=== PATIENT | female | born 1975 | race Caucasian/White ===

== ENCOUNTER 2019-01-03 21:02 | Emergency (ER) | payer BC ==
[2019-01-03] MEDS ORDERED: Norflurane/HFc 245FA Medium Stream Spray 103.5 ML Can TOP ONE (21:30)
[2019-01-03] MEDS ORDERED: Sodium Chloride 0.9% 10 ML Syringe FLUSH PRN (21:32)
[2019-01-03] MEDS ORDERED: Promethazine 12.5 MG in Sodium Chloride 0.9% 100 ML IV ONE (21:34)
[2019-01-03] MEDS ORDERED: diphenhydrAMINE 50 MG/ML SDV IVPUSH ONE (21:34)
[2019-01-03] MEDS: Sodium Chloride 0.9% 1,000 ML IV SCH ×2 (21:53→23:10)
[2019-01-03 22:05] LABS: CHLORIDE,CL 103 mmol/L (98-107); SODIUM,NA 140 mmol/L (136-145)
[2019-01-03] MEDS ORDERED: Haloperidol Lactate 5 MG/ML SDV IV ONE (22:39)
--- NOTE | 2019-01-03 23:00 | EDM.PDOC ---
ED HPI GENERAL MEDICAL PROBLEM - General Chief Complaint: Headache Stated Complaint: migraine Time Seen by Provider: 01/03/19 21:29 Source of Information: Reports: Patient History Limitations: Reports: No Limitations - History of Present Illness INITIAL COMMENTS - FREE TEXT/NARRATIVE: Patient is a 43-year-old who is seen with chief complaint of migraine headaches she states that he started earlier today she did have some photophobia and some type of visual hallucination of lites earlier today she states her headache is about a 10 out of 10 at this time at this time patient will be hydrated Phenergan and Benadryl given and we will Duration: Hour(s):, Getting Worse Location: Reports: Head Quality: Reports: Stabbing, Throbbing Severity: Severe Improves with: Reports: Medication Worsens with: Reports: Other Associated Symptoms: Reports: Nausea/Vomiting Treatments YARN COMBER: Reports: Other Medication(s) Headache Pain Score (Numeric/FACES): 7 - Related Data Allergies Allergy/AdvReac Type Severity Reaction Status Date / Time paroxetine HCl [From Paxil] Allergy Unknown paranoia Verified 01/03/19 21:20 bupropion [From Wellbutrin] Allergy Hallucinati Verified 01/03/19 21:20 ons denosumab [From Prolia] Allergy Other Verified 01/03/19 21:20 latex Allergy hot Verified 01/03/19 21:20 "inflammed" rash prednisone Allergy paranoia Verified 01/03/19 21:20 Home Meds: Home Meds LORazepam [Ativan] 1 mg PO Q8HR PRN 11/11/17 [History] ALPRAZolam [Xanax] 0.5 mg PO QID PRN 06/09/18 [History] Ondansetron [Ondansetron ODT] 1 tab .ROUTE Q6H PRN 06/09/18 [History] Propranolol [Propranolol CR 24 Hr] 120 mg PO BEDTIME 06/09/18 [History] Cyanocobalamin (Vitamin B12) [Cyanocobalamin] 2,000 mcg SUBCUT MO 06/10/18 [ History] Omeprazole 20 mg PO BEDTIME 06/10/18 [History] Acetaminophen [Tylenol] 3 tab PO ASDIRECTED PRN 01/03/19 [History] Ibuprofen [Advil] 3 tab PO Q6H PRN 01/03/19 [History] Non-Formulary Medication [NF Drug] 3 tab PO Q6H PRN 01/03/19 [History] Promethazine [Phenergan] 50 mg PO ASDIRECTED PRN 01/03/19 [History] Varenicline Tartrate [Chantix] 1 tab PO BID 01/03/19 [History] Past Medical History Other HEENT History: wears glasses Cardiovascular History: Reports: Hypertension Respiratory History: Reports: None Gastrointestinal History: Reports: Inflammatory Bowel Disease Other Gastrointestinal History: Chrohn's Disease Genitourinary History: Reports: None 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 Musculoskeletal History: Reports: None Neurological History: Reports: None Psychiatric History: Reports: Anxiety Endocrine/Metabolic History: Reports: None Immunologic History: Reports: None Oncologic (Cancer) History: Reports: None Dermatologic History: Reports: None ED ROS GENERAL - Review of Systems Review Of Systems: See Below Constitutional: Reports: No Symptoms HEENT: Reports: Vision Change (Patient had a burst of light earlier today on the right eye) Respiratory: Reports: No Symptoms Cardiovascular: Reports: No Symptoms Endocrine: Reports: No Symptoms GI/Abdominal: Reports: No Symptoms : Reports: No Symptoms Musculoskeletal: Reports: No Symptoms Skin: Reports: No Symptoms Neurological: Reports: Headache Psychiatric: Reports: No Symptoms Hematologic/Lymphatic: Reports: No Symptoms Immunologic: Reports: No Symptoms Free Text/Narrative/Comment: Patient has history of migraines percent with a right side migraine ED EXAM, HEAD INJURY - Physical Exam Exam: See Below Exam Limited By: No Limitations General Appearance: Alert, WD/WN, Moderate Distress, Other Head: Atraumatic, Normocephalic Ears: Normal External Exam, Normal Canal, Hearing Grossly Normal, Normal TMs Nose: Normal Inspection, Normal Mucousa, No Blood Throat/Mouth: Normal Inspection, Normal Lips, Normal Teeth, Normal Gums, Normal Oropharynx, Normal Voice, No Airway Compromise Neck: Non-Tender, Full Range of Motion, Normal Alignment, Normal Inspection Respiratory: No Respiratory Distress, Lungs Clear, Normal Breath Sounds, No Accessory Muscle Use, Chest Non-Tender Cardiovascular: Normal Peripheral Pulses, Regular Rate, Rhythm, No Edema, No Gallop, No JVD, No Murmur, No Rub GI/Abdominal Exam: Normal Bowel Sounds, Soft, Non-Tender, No Organomegaly, No Distention, No Abnormal Bruit, No Mass (Female) Exam: Deferred Rectal (Female) Exam: Deferred Back Exam: Full Range of Motion, Normal Inspection, NT Extremities: Normal Inspection, Normal Range of Motion, Non-Tender, No Pedal Edema, Normal Capillary Refill Neurologic: manager web application II-XII nml As Tested, No Motor/Sensory Deficits, Alert, Normal Mood/Affect, Oriented x 3, Other (Migraine headache) Skin: Normal Color, Warm/Dry - [place] Coma Score Best Eye Response (Norberto): (4) Open Spontaneously Best Verbal Response (Frank[place]): (5) Oriented Best Motor Response (Norberto): (6) Obeys Commands Course - Vital Signs Last Recorded V/S: Last Vital Signs Temp 97.8 F 01/03/19 21:06 Pulse 73 01/03/19 21:06 Resp 18 01/03/19 21:06 BP 127/67 01/03/19 21:06 Pulse Ox 97 01/03/19 21:06 - Orders/Labs/Meds Orders: Active Orders 24 hr Category Date Time Status Sodium Chloride 0.9% [Normal Saline] 1,000 ml Med 01/03/19 21:45 Active IV ASDIRECTED Sodium Chloride 0.9% [Saline Flush] Med 01/03/19 21:32 Active 10 ml FLUSH ASDIRECTED PRN Saline Lock Insert [OM.PC] Stat Oth 01/03/19 21:32 Ordered Medication Orders Sodium Chloride (Normal Saline) 1,000 mls @ 999 mls/hr IV ASDIRECTED ARLINE Last Admin: 01/03/19 21:53 Dose: 999 mls/hr Sodium Chloride (Saline Flush) 10 ml FLUSH ASDIRECTED PRN PRN Reason: Keep Vein Open Last Admin: 01/03/19 21:55 Dose: 10 ml Labs: Laboratory Tests 01/03/19 01/03/19 Range/Units 21:47 21:47 WBC 12.4 H (4.0-10.2) K/uL RBC 4.71 (3.77-5.09) M/uL Hgb 14.2 (11.7-15.5) g/dL Hct 41.6 (34.0-46.0) % MCV 88.3 (84.0-98.0) fL MCH 30.1 (28.2-33.3) pg MCHC 34.1 (31.7-36.0) g/dL RDW 14.9 H (11.2-14.1) % Plt Count 352 H (150-350) K/uL Neut % (Auto) 63.8 (45.0-80.0) % Lymph % (Auto) 27.2 (10.0-50.0) % Harris % (Auto) 7.1 (2.0-14.0) % Eos % (Auto) 1.7 (0.0-5.0) % Baso % (Auto) 0.2 (0.0-2.0) % Neut # (Auto) 7.89 H (1.40-7.00) K/uL Lymph # (Auto) 3.36 (0.50-3.50) K/uL Harris # (Auto) 0.88 (0.00-1.00) K/uL Eos # (Auto) 0.21 (0.00-0.50) K/uL Baso # (Auto) 0.02 (0.00-0.20) K/uL Sodium 140 (136-145) mmol/L Potassium 3.1 L (3.5-5.1) mmol/L Chloride 103 (98-107) mmol/L Carbon Dioxide 24.6 (21.0-32.0) mmol/L BUN 7 (7-18) mg/dL Creatinine 0.70 (0.51-1.17) mg/dL Est Cr Clr Drug Dosing TNP Estimated GFR (MDRD) > 60 mL/min Glucose 89 (74-106) mg/dL Calcium 8.8 (8.5-10.1) mg/dL Meds: Medications Generic Name Dose Route Start Last Admin Trade Name Freq PRN Reason Stop Dose Admin Sodium Chloride 1,000 mls @ 999 mls/hr 01/03/19 21:45 01/03/19 21:53 Normal Saline IV 999 mls/hr ASDIRECTED ARLINE Administration Sodium Chloride 10 ml 01/03/19 21:32 01/03/19 21:55 Saline Flush FLUSH 10 ml ASDIRECTED PRN Administration Keep Vein Open Discontinued Medications Generic Name Dose Route Start Last Admin Trade Name Freq PRN Reason Stop Dose Admin Diphenhydramine HCl 50 mg 01/03/19 21:34 01/03/19 21:55 Benadryl IVPUSH 01/03/19 21:35 50 mg ONETIME ONE Administration Haloperidol Lactate 1 mg 01/03/19 22:39 01/03/19 23:02 Haldol IV 01/03/19 22:40 1 mg ONETIME ONE Administration Promethazine HCl 12.5 mg/ 100.5 mls @ 400 mls/hr 01/03/19 21:34 01/03/19 21: 55 Sodium Chloride IV 01/03/19 21:49 400 mls/hr ONETIME ONE Administration Norflurane 5 ml 01/03/19 21:30 01/03/19 21:53 Pain Ease [place] TOP 01/03/19 21:31 1 dose ONETIME ONE Administration Departure - Departure Time of Disposition: 23:55 Disposition: Home, Self-Care 01 Condition: Poor Clinical Impression: Migraine, Hypokalemia - Discharge Information *PRESCRIPTION DRUG MONITORING PROGRAM REVIEWED*: No *COPY OF PRESCRIPTION DRUG MONITORING REPORT IN PATIENT AJIT: No Referrals: Jane Pitts PA-C [Primary Care Provider] - Forms: ED Department Discharge Care Plan Goals: Patient seen treated with IV fluids and the nausea medication Benadryl and given Haldol at this time patient is sleepy headache is better but still there I will give her another liter of fluids neuro note of to stay home until her headaches improve. Haldol 1 mg IV given patient now sleepy headache improved discharged home follow-up with primary - My Orders Last 24 Hours: My Active Orders 01/03/19 21:32 Sodium Chloride 0.9% [Saline Flush] 10 ml FLUSH ASDIRECTED PRN Saline Lock Insert [OM.PC] Stat 01/03/19 21:45 Sodium Chloride 0.9% [Normal Saline] 1,000 ml IV ASDIRECTED - Assessment/Plan Last 24 Hours: My Active Orders 01/03/19 21:32 Sodium Chloride 0.9% [Saline Flush] 10 ml FLUSH ASDIRECTED PRN Saline Lock Insert [OM.PC] Stat 01/03/19 21:45 Sodium Chloride 0.9% [Normal Saline] 1,000 ml IV ASDIRECTED
== END 2019-01-04 00:34 | disposition home or self-care (01) ==
LOC: LL.ED 21:02
DX: G43.909 Migraine, unspecified, not intractable, without status migrainosus (principal); E87.6 Hypokalemia; I10 Essential (primary) hypertension; Z88.8 Allergy status to other drugs, medicaments and biological substances; Z79.899 Other long term (current) drug therapy
CPT/HCPCS: 36415; 80048; 85025; 96361; 96374; 96375; 99283-25; J1200; J1630; J2550; J7030; J7050

== ENCOUNTER 2019-08-10 20:50 | Emergency (ER) | payer BC ==
[2019-08-10] MEDS ORDERED: Sodium Chloride 0.9% 10 ML Syringe FLUSH PRN (21:19)
[2019-08-10] MEDS ORDERED: Norflurane/HFc 245FA Medium Stream Spray 103.5 ML Can TOP ONE (21:20)
[2019-08-10] MEDS ORDERED: Potassium Chloride 10 MEQ in Premix Bag 1 BAG IV ONE ×8 (21:45→21:46)
[2019-08-10] MEDS ORDERED: Sodium Chloride 0.9% 1,000 ML IV ONE (22:02)
--- NOTE | 2019-08-10 22:46 | EDM.PDOC ---
ED HPI GENERAL MEDICAL PROBLEM - General Chief Complaint: General Stated Complaint: LOW POTASSIUM Time Seen by Provider: 08/10/19 21:00 Source of Information: Reports: Patient - History of Present Illness INITIAL COMMENTS - FREE TEXT/NARRATIVE: Pt presents to ER with low potassium Has hx/o chronic hypokalemia due to chronic diarrhea from Crohn's Was seen in clinic today and noted to be low Began having palpitations and this is a usual symptom when she is low Her K+ was 2.5 Onset: Gradual Duration: Chronic Location: Reports: Chest Associated Symptoms: Reports: Other (Palpitations) Sternum Pain Score (Numeric/FACES): 6 - Related Data Allergies Allergy/AdvReac Type Severity Reaction Status Date / Time paroxetine HCl [From Paxil] Allergy Unknown paranoia Verified 08/10/19 20:58 aripiprazole [From Abilify] Allergy Irritabilit Verified 08/10/19 20:58 y bupropion [From Wellbutrin] Allergy Hallucinati Verified 08/10/19 20:58 ons denosumab [From Prolia] Allergy Other Verified 08/10/19 20:58 latex Allergy hot Verified 08/10/19 20:58 "inflammed" rash prednisone Allergy paranoia Verified 08/10/19 20:58 Home Meds: Home Meds LORazepam [Ativan] 1 mg PO Q8HR PRN 11/11/17 [History] ALPRAZolam [Xanax] 0.5 mg PO QID PRN 06/09/18 [History] Ondansetron [Ondansetron ODT] 1 tab .ROUTE Q6H PRN 06/09/18 [History] Propranolol [Propranolol CR 24 Hr] 120 mg PO BEDTIME 06/09/18 [History] Cyanocobalamin (Vitamin B12) [Cyanocobalamin] 2,000 mcg SUBCUT WEEKLY 06/10/18 [ History] Omeprazole 20 mg PO BEDTIME 06/10/18 [History] Acetaminophen [Tylenol] 3 tab PO ASDIRECTED PRN 01/03/19 [History] Ibuprofen [Advil] 3 tab PO Q6H PRN 01/03/19 [History] Non-Formulary Medication [NF Drug] 3 tab PO Q6H PRN 01/03/19 [History] Promethazine [Phenergan] 50 mg PO ASDIRECTED PRN 01/03/19 [History] Varenicline Tartrate [Chantix] 1 tab PO BID 01/03/19 [History] Aspirin [Halfprin] 81 mg PO DAILY 02/15/19 [History] Past Medical History Other HEENT History: wears glasses Cardiovascular History: Reports: Hypertension, Other (See Below) Other Cardiovascular History: pt has chest discomfort when potassium levels are low. 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 Musculoskeletal History: Reports: None Neurological History: Reports: None Psychiatric History: Reports: Anxiety Endocrine/Metabolic History: Reports: None Immunologic History: Reports: None Oncologic (Cancer) History: Reports: None Dermatologic History: Reports: None Social & Family History - Tobacco Use Smoking Status *Q: Current Every Day Smoker Years of Tobacco use: 30 Packs/Tins Daily: 1 - Caffeine Use Caffeine Use: Reports: Soda ED ROS GENERAL - Review of Systems Review Of Systems: See Below Cardiovascular: Reports: Palpitations ED EXAM, GENERAL - Physical Exam Exam: See Below General Appearance: Mild Distress Neck: Supple Respiratory/Chest: Lungs Clear Cardiovascular: Regular Rate, Rhythm Course - Vital Signs Last Recorded V/S: Last Vital Signs Temp 36.6 C 08/10/19 20:51 Pulse 63 08/10/19 20:51 Resp 16 08/10/19 20:51 BP 103/57 L 08/10/19 20:51 Pulse Ox 100 08/10/19 20:51 - Orders/Labs/Meds Orders: Active Orders 24 hr Category Date Time Status Cardiac Monitoring [RC] . DIRECTED Care 08/10/19 22:11 Active Communication Order [RC] ROUTINE Care 08/10/19 22:11 Active Potassium Chloride [KCl 10 MEQ in Water 50 ML] 10 meq Med 08/10/19 21:45 Active Premix Bag 1 bag IV ONETIME Potassium Chloride [KCl 10 MEQ in Water 50 ML] 10 meq Med 08/10/19 21:45 Active Premix Bag 1 bag IV ONETIME Potassium Chloride [KCl 10 MEQ in Water 50 ML] 10 meq Med 08/10/19 21:46 Active Premix Bag 1 bag IV ONETIME Potassium Chloride [KCl 10 MEQ in Water 50 ML] 10 meq Med 08/10/19 21:46 Active Premix Bag 1 bag IV ONETIME Sodium Chloride 0.9% [Normal Saline] 1,000 ml Med 08/10/19 22:02 Active IV ONETIME Sodium Chloride 0.9% [Saline Flush] Med 08/10/19 21:19 Active 10 ml FLUSH ASDIRECTED PRN Saline Lock Insert [OM.PC] Routine Oth 08/10/19 21:19 Ordered Medication Orders Potassium Chloride 10 meq/ (Premix) 50 mls @ 50 mls/hr IV ONETIME ONE Stop: 08/10/19 22:44 Last Admin: 08/10/19 22:04 Dose: 50 mls/hr Potassium Chloride 10 meq/ (Premix) 50 mls @ 50 mls/hr IV ONETIME ONE Stop: 08/10/19 22:44 Potassium Chloride 10 meq/ (Premix) 50 mls @ 50 mls/hr IV ONETIME ONE Stop: 08/10/19 22:45 Potassium Chloride 10 meq/ (Premix) 50 mls @ 50 mls/hr IV ONETIME ONE Stop: 08/10/19 22:45 Sodium Chloride (Normal Saline) 1,000 mls @ 200 mls/hr IV ONETIME ONE Stop: 08/11/19 03:01 Last Admin: 08/10/19 22:04 Dose: 200 mls/hr Sodium Chloride (Saline Flush) 10 ml FLUSH ASDIRECTED PRN PRN Reason: Keep Vein Open Meds: Medications Generic Name Dose Route Start Last Admin Trade Name Freq PRN Reason Stop Dose Admin Potassium Chloride 10 meq/ 50 mls @ 50 mls/hr 08/10/19 21:45 08/10/19 22:04 Premix IV 08/10/19 22:44 50 mls/hr ONETIME ONE Administration Potassium Chloride 10 meq/ 50 mls @ 50 mls/hr 08/10/19 21:45 Premix IV 08/10/19 22:44 ONETIME ONE Potassium Chloride 10 meq/ 50 mls @ 50 mls/hr 08/10/19 21:46 Premix IV 08/10/19 22:45 ONETIME ONE Potassium Chloride 10 meq/ 50 mls @ 50 mls/hr 08/10/19 21:46 Premix IV 08/10/19 22:45 ONETIME ONE Sodium Chloride 1,000 mls @ 200 mls/hr 08/10/19 22:02 08/10/19 22:04 Normal Saline IV 08/11/19 03:01 200 mls/hr ONETIME ONE Administration Sodium Chloride 10 ml 08/10/19 21:19 Saline Flush FLUSH ASDIRECTED PRN Keep Vein Open Discontinued Medications Generic Name Dose Route Start Last Admin Trade Name Freq PRN Reason Stop Dose Admin Norflurane 1 ml 08/10/19 21:20 08/10/19 21:33 Pain Ease [place] TOP 08/10/19 21:21 1 applic ONETIME ONE Administration - Re-Assessments/Exams Free Text/Narrative Re-Assessment/Exam: 08/10/19 22:46 Pt given KCl 10 eEq/ 50 ml NS X 4 in ER Pt has oral potassium at home Will recheck in clinic in AM Departure - Departure Time of Disposition: 03:00 Disposition: Home, Self-Care 01 Clinical Impression: Hypokalemia - Discharge Information Instructions: Hypokalemia Referrals: Jane Pitts PA-C [Primary Care Provider] - Additional Instructions: Recheck in clinic in AM Sepsis Event Note - Evaluation Sepsis Screening Result: No Definite Risk - Focused Exam Vital Signs: Vital Signs Temp Pulse Resp BP Pulse Ox 08/10/19 20:51 36.6 C 63 16 103/57 L 100 Date Exam was Performed: 08/10/19 Time Exam was Performed: 22:41 - My Orders Last 24 Hours: My Active Orders 08/10/19 21:19 Sodium Chloride 0.9% [Saline Flush] 10 ml FLUSH ASDIRECTED PRN Saline Lock Insert [OM.PC] Routine 08/10/19 21:45 Potassium Chloride [KCl 10 MEQ in Water 50 ML] 10 meq Premix Bag 1 bag IV ONETIME Potassium Chloride [KCl 10 MEQ in Water 50 ML] 10 meq Premix Bag 1 bag IV ONETIME 08/10/19 21:46 Potassium Chloride [KCl 10 MEQ in Water 50 ML] 10 meq Premix Bag 1 bag IV ONETIME Potassium Chloride [KCl 10 MEQ in Water 50 ML] 10 meq Premix Bag 1 bag IV ONETIME 08/10/19 22:02 Sodium Chloride 0.9% [Normal Saline] 1,000 ml IV ONETIME 08/10/19 22:11 Cardiac Monitoring [RC] . DIRECTED Communication Order [RC] ROUTINE - Assessment/Plan Last 24 Hours: My Active Orders 08/10/19 21:19 Sodium Chloride 0.9% [Saline Flush] 10 ml FLUSH ASDIRECTED PRN Saline Lock Insert [OM.PC] Routine 08/10/19 21:45 Potassium Chloride [KCl 10 MEQ in Water 50 ML] 10 meq Premix Bag 1 bag IV ONETIME Potassium Chloride [KCl 10 MEQ in Water 50 ML] 10 meq Premix Bag 1 bag IV ONETIME 08/10/19 21:46 Potassium Chloride [KCl 10 MEQ in Water 50 ML] 10 meq Premix Bag 1 bag IV ONETIME Potassium Chloride [KCl 10 MEQ in Water 50 ML] 10 meq Premix Bag 1 bag IV ONETIME 08/10/19 22:02 Sodium Chloride 0.9% [Normal Saline] 1,000 ml IV ONETIME 08/10/19 22:11 Cardiac Monitoring [RC] . DIRECTED Communication Order [RC] ROUTINE
== END 2019-08-11 02:50 | disposition home or self-care (01) ==
LOC: LL.ED 20:50
DX: E87.6 Hypokalemia (principal); I10 Essential (primary) hypertension; F41.9 Anxiety disorder, unspecified; F17.210 Nicotine dependence, cigarettes, uncomplicated; Z79.82 Long term (current) use of aspirin; Z79.899 Other long term (current) drug therapy; Z88.6 Allergy status to analgesic agent; Z88.8 Allergy status to other drugs, medicaments and biological substances; Z91.040 Latex allergy status
CPT/HCPCS: 96365; 96366; 99284-25; J3480; J7030

== ENCOUNTER 2020-12-22 09:23 | Emergency (ER) | payer OTHER ==
[2020-12-22] MEDS ORDERED: EPINEPHrine 1 MG/1 ML Amp IM ONE (09:26)
[2020-12-22] MEDS ORDERED: Famotidine 20 MG/2 ML SDV IVPUSH ONE (09:28)
[2020-12-22] MEDS ORDERED: diphenhydrAMINE 50 MG/ML SDV IVPUSH ONE (09:28)
[2020-12-22] MEDS ORDERED: Norflurane/HFc 245FA Medium Stream Spray 103.5 ML Can ONE (09:28)
[2020-12-22] MEDS ORDERED: Sodium Chloride 0.9% 10 ML Syringe FLUSH PRN (09:28)
--- NOTE | 2020-12-22 10:28 | EDM.PDOC ---
ED HPI GENERAL MEDICAL PROBLEM - General Chief Complaint: Allergic Reaction Stated Complaint: allergic reaction Time Seen by Provider: 12/22/20 09:23 Source of Information: Reports: Patient, Old Records ([facility] chart/EMR) History Limitations: Reports: No Limitations - History of Present Illness INITIAL COMMENTS - FREE TEXT/NARRATIVE: The patient drove herself to the emergency room for evaluation of progressive allergic reaction likely secondary to her Cimzia with second loading dose received yesterday at about 3:30 PM. One of the injection sites did show some mild pustular formation, which she drained yesterday, however no other significant evidence of local signs of infection. Since early this morning the patient began experiencing some increasing generalized pruritus, mild hive formation in the abdominal region at site of the above two injections and some beginning mild dyspnea and possible dysphagia. She denies any other change in allergen exposure with the patient taking 25 mg of her hydroxyzine 1 hour prior to arrival with no improvement of her symptoms. The patient did have a minor allergic reaction from her first loading dose of the above medication with hydroxyzine prescribed at that time, however she was not premedicated yesterday at time of her second loading dose. The patient denies any chest pain/pressure, heart flutter, dizziness, orthostasis, orthopnea, diaphoresis, paresthesias, recent decreased exercise tolerance, or any other anginal-type symptoms. No recent history of abdominal pain, heartburn, nausea, diarrhea, melena, gross hematochezia, or any food intolerance, including fatty foods, etc.. The patient also denies any recent fever, cough, wheezing, dyspnea, etc.. She denies any current specific pain or discomfort. Onset: Today, Gradual Onset Date: 12/22/20 Duration: Getting Worse Location: Reports: Abdomen, Other (Rash but no pain). Denies: Head, Face, Neck, Chest, Back, Pelvis, Upper Extremity, Left, Upper Extremity, Right, Lower Extremity, Left, Lower Extremity, Right, Generalized, Radiates to Quality: Reports: Same as Previous Episode Severity: Moderate Improves with: Reports: None Worsens with: Reports: None Context: Reports: Other (As above). Denies: Lifting, Sick Contact, Trauma Associated Symptoms: Denies: Confusion, Chest Pain, Cough, Diaphoresis, Fever/Chills, Headaches, Loss of Appetite, Malaise, Shortness of Breath, Syncope Treatments COMMUNITY SUPPORT ASSOCIATE: Reports: Other Medication(s) (As above) - Related Data Allergies Allergy/AdvReac Type Severity Reaction Status Date / Time paroxetine HCl [From Paxil] Allergy Unknown paranoia Verified 12/22/20 09:53 aripiprazole [From Abilify] Allergy Irritabilit Verified 12/22/20 09:53 y bupropion [From Wellbutrin] Allergy Hallucinati Verified 12/22/20 09:53 ons certolizumab pegol Allergy Rash Verified 12/22/20 09:53 [From Cimzia] denosumab [From Prolia] Allergy Other Verified 12/22/20 09:53 latex Allergy hot Verified 12/22/20 09:53 "inflammed" rash prednisone Allergy paranoia Verified 12/22/20 09:53 Home Meds: Home Meds Non-Formulary Medication [NF Drug] 6 mg PO BEDTIME 10/07/20 [History] ALPRAZolam [Xanax] 1 tab PO ASDIRECTED PRN 12/22/20 [History] Certolizumab Pegol [Cimzia] 400 mg SUBCUT ASDIRECTED 12/22/20 [History] Cyanocobalamin (Vitamin B-12) [B-12 Compliance] 2 ml PO WEEKLY 12/22/20 [History] Cyclobenzaprine [Flexeril] 1 tab PO TID PRN 12/22/20 [History] FLUoxetine [PROzac] 60 mg PO DAILY 12/22/20 [History] Famotidine [Pepcid] 20 mg PO BID #14 tab 12/22/20 [Rx] Omeprazole 1 tab PO DAILY 12/22/20 [History] Potassium Chloride [Klor-Con 10] 60 meq PO TID 12/22/20 [History] Prochlorperazine [Compazine] 5 mg PO DAILY PRN 12/22/20 [History] Propranolol HCl [Inderal Xl] 1 cap PO DAILY 12/22/20 [History] Rizatriptan Benzoate [Rizatriptan] 1 tab PO DAILY PRN 12/22/20 [History] busPIRone [Buspar] 1 tab PO BID 12/22/20 [History] hydrOXYzine HCL [Hydroxyzine HCl] 1 tab PO ASDIRECTED PRN 12/22/20 [History] Past Medical History HEENT History: Reports: Allergic Rhinitis Other HEENT History: The patient wears glasses and soft contact lenses occasionally. Cardiovascular History: Reports: Arrhythmia, High Cholesterol, Hypertension, Other (See Below). Denies: Aneurysm, Blood Clots/VTE/DVT Other Cardiovascular History: Left atrial enlargement by echocardiogram. Pt has nonspecific chest discomfort and sinus tachycardia when potassium levels are low. Respiratory History: Reports: Intubation, Previous, Other (See Below). Denies: Asthma, Bronchitis, Recurrent, COPD, Intubation, Difficult, PE, Pneumonia, Recurrent, Pneumothorax, Sleep Apnea, TB Other Respiratory History: Left rib fracture in about 2006. Gastrointestinal History: Reports: Cholelithiasis, Chronic Diarrhea, Fatty Liver, Fecal Incontinence, GERD, Inflammatory Bowel Disease. Denies: Celiac Disease, Chronic Constipation, Colon Polyp, Gastritis, GI Bleed, Hepatitis, Irritable Bowel Syndrome, Jaundice, Pancreatitis Other Gastrointestinal History: Crohn's Disease. Hepatomegaly with fatty liver. Genitourinary History: Reports: Urinary Incontinence, Other (See Below). Denies: Acute Renal Failure, Chronic Renal Insuffiency, Renal Calculus, STD, UTI, Recurrent Other Genitourinary History: Urinary incontinence improved/resolved after bladder suspension as below. VISUAL PRESENTATION MANAGER History: Reports: None, Dysfunctional Uterine Bleeding, Polycystic Ovaries, , Prolapsed Uterus, Spontaneous . Denies: Endometriosis, Fibroids : 6 Para: 3 LMP (Approximate): Other (See Below) Other VISUAL PRESENTATION MANAGER History: Surgical menopause as below secondary to dysfunctional uterine bleeding. Benign bilateral ovarian cysts. Benign nabothian cysts. SAB times x3. Initial full-term with subsequent at 36 weeks gestation and additional at 30 weeks gestation with labor starting at 25 weeks gestation. Musculoskeletal History: Reports: None Neurological History: Reports: Migraines Psychiatric History: Reports: Anxiety, Depression, Panic Attack, Psych Hospitalization(s), Suicide Attempt, Suicidal Ideation. Denies: Abuse, Victim of, ADD, ADHD, Addiction, Psychosis, PTSD, Other (See Below) Other Psychiatric History: Suicidal thoughts and attempt at age 13 with Tylenol overdose. Endocrine/Metabolic History: Reports: Hyperthyroidism, Hypokalemia, Obesity/BMI 30+, Osteopenia, Osteoporosis, Other (See Below). Denies: Diabetes, Gestational, Diabetes, Type I, Diabetes, Type II, Diabetes Mellitus, Type 3c, Hypomagnesemia, Hypothyroidism Other Endocrine/Metabolic History: Borderline subclinical hyperthyroidism. Hypoalbuminemia. Hematologic History: Reports: Anemia, B12 Deficiency, Iron Deficiency, Other (See Below). Denies: Blood Transfusion(s) Other Hematologic History: Occasional iron infusion required. Immunologic History: Reports: Immunosuppression, Other (See Below). Denies: AIDS, HIV, SLE Other Immunologic History: Current immunotherapy for her Crohn's disease. Oncologic (Cancer) History: Reports: None Dermatologic History: Reports: None. Denies: Eczema, Psoriasis - Infectious Disease History Infectious Disease History: Reports: Chicken Pox. Denies: C-Difficile, Measles, Meningitis, Mononucleosis, MRSA, Mumps, Novel Coronavirus, Pertussis (Whooping Cough), Rheumatic Fever, Rubella, Scarlet Fever, Shingles, TB, VRE - Past Surgical History Head Surgeries/Procedures: Reports: None HEENT Surgical History: Reports: Oral Surgery, Other (See Below). Denies: Adenoidectomy, Cataract Surgery, Eye Surgery, Laser Surgery, LASIK, Myringotomy w Tube(s), Naso-Sinus Surgery, Tonsillectomy Other HEENT Surgeries/Procedures: Almost complete teeth extraction with complete upper dentures and partial lowers. Cardiovascular Surgical History: Reports: None. Denies: Varicose Respiratory Surgical History: Reports: None. Denies: Thoracentesis GI Surgical History: Reports: Appendectomy, Cholecystectomy, Colon, Colonoscopy, EGD, Other (See Below). Denies: Hernia, Inguinal, Hernia Repair/Other, Polypectomy Other GI Surgeries/Procedures: Last EGD and colonoscopy in about 2015. Previous colonoscopy on 07/17/2011. Initial right-sided hemicolectomy in about 1999 with subsequent partial small bowel resection at the ileum including appendectomy with total resection of about 10 cm of small bowel in 2010. Open cholecystectomy 1992. Female Surgical History: Reports: D&C, Dilitation & Evacuation, Hysterectomy, Other (See Below). Denies: Breast Biopsy, Section, Oophorectomy, Salpingo-Oophorectomy, Tubal Ligation Other Female Surgeries/Procedures: D&C x1 secondary to SAB as above. Partial hysterectomy with concomitant bladder suspension surgery in 2019. Endocrine Surgical History: Reports: None. Denies: Thyroid Biopsy Neurological Surgical History: Reports: None. Denies: C-Spine, Discectomy, Laminectomy, Lumbar Spine, Sacral Spine, Spinal Fusion, Thoracic Spine, Vertebroplasty Musculoskeletal Surgical History: Reports: None. Denies: Arthroscopic Procedure , Carpal Tunnel, Ganglion Cyst, Joint Replacement, ORIF, Shoulder Surgery Oncologic Surgical History: Reports: None Dermatological Surgical History: Reports: None - Past Imaging History Past Imaging History: Reports: Cardiac Echo (08/17/2019 with ejection fraction of 60-65% with findings as above. Previously on 11/29/2014.), CAT Scan (Head 05/31/2014. Abdomen and pelvis on 09/22/2013.), DEXA Scan (01/26/2019, 02/06/2017, and 11/22/2014.), Mammogram (Last on 08/24/2020.), MRI (C-spine on 09/21/2013.), Ultrasound (Left breast 07/09/2018. Pelvic on 05/27/2017 and 11/08/2013. Abdominal on 07/26/2015.) Social & Family History - Family History Cardiac: Reports: CAD, AR, Other (See Below) Other Cardiac Family History: Father with AR at age 48. Psychiatric: Reports: Anxiety, Depression, Other (See Below) Other Psychiatric Family History: Mother with anxiety depression disorder. - Tobacco Use Tobacco Use Status *Q: Current Every Day Tobacco User Tobacco Use Within Last Twelve Months: Cigarettes Years of Tobacco use: 31 Packs/Tins Daily: 1 Used Tobacco, but Quit: No Smoking Cessation Information Provided To Patient: Yes Second Hand Smoke Exposure: Yes Source of Second Hand Smoke Exposure: smokes. Second Hand Smoke Education Provided: Yes - Caffeine Use Caffeine Use: Reports: Soda - Alcohol Use Alcohol Use History: Yes Days Per Week of Alcohol Use: 0 Number of Drinks Per Day: 2 Number of Drinks Per Day Comment: Usually wine 3 times per month. No previous DWIs, problems with alcohol abuse, etc. 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 ED EXAM GENERAL NO PERIP PULSE - Physical Exam Exam: See Below Exam Limited By: No Limitations General Appearance: Alert, WD/WN, No Apparent Distress, Anxious (Moderate) Eye Exam: Bilateral Eye: EOMI, Normal Inspection (Patient is wearing glasses. No vertigo or nystagmus), PERRL Ears: Normal External Exam, Normal Canal, Hearing Grossly Normal, Normal TMs Nose: Normal Inspection, Normal Mucosa, No Blood Throat/Mouth: Normal Inspection, Normal Lips, Normal Gums, Normal Oropharynx, Normal Voice, No Airway Compromise, Other (No facial angioedema). No: Normal Teeth (Complete upper dentures with partial lowers), Dysphagia, Inflammation, Perioral Cyanosis Head: Atraumatic, Normocephalic. No: Facial Swelling, Facial Tenderness, Sinus Tenderness Neck: Normal Inspection, Supple, Non-Tender, Full Range of Motion. No: Carotid Bruit, Lymphadenopathy (L), Lymphadenopathy (R), Thyromegaly Respiratory/Chest: No Respiratory Distress, Lungs Clear, Normal Breath Sounds, No Accessory Muscle Use, Chest Non-Tender. No: Pleural Rub, Retractions Cardiovascular: Normal Peripheral Pulses, Regular Rate, Rhythm, No Edema, No Gallop, No JVD, No Murmur, No Rub. No: Gallop/S3, Gallop/S4, Friction Rub GI/Abdominal: Normal Bowel Sounds, Soft, Non-Tender, No Organomegaly, No Distention, No Abnormal Bruit, No Mass, Other (Mildly obese). No: Guarding (Female) Exam: Deferred Rectal (Female) Exam: Deferred Back Exam: Normal Inspection, Full Range of Motion. No: CVA Tenderness (L), CVA Tenderness (R), Muscle Spasm Extremities: Normal Inspection, Normal Range of Motion, Non-Tender, No Pedal Edema, Normal Capillary Refill. No: Gabriela's Sign Neurological: Alert, Oriented, CN II-XII Intact, Normal Cognition, Normal Gait, No Motor/Sensory Deficits Psychiatric: Anxious (Moderate), Depressed Mood (Mild) Skin Exam: Warm, Dry, Intact, Normal Color, Rash (Mildly confluent diffuse macular urticarial rash in the lower abdominal region), Wound/Incision (Mild 1 cm area of +1 erythema at the injection site in the left lower abdomen with no purulent drainage, lymphangitis, etc.). No: Diaphoretic Lymphatic: No Adenopathy Course - Vital Signs Last Recorded V/S: Last Vital Signs Temp 37.0 C 12/22/20 09:30 Pulse 86 12/22/20 11:00 Resp 16 12/22/20 11:00 BP 96/57 L 12/22/20 11:00 Pulse Ox 98 12/22/20 11:00 Vital Signs - 24 hr 12/22/20 12/22/20 12/22/20 09:30 10:01 10:30 Temperature [ 37.0 C Temporal] Pulse, 102 H 87 91 Peripheral [ Right Pulse Oximetry] Respiratory 18 16 16 Rate Blood Pressure 111/58 L 105/72 126/83 [Right Upper Arm] O2 Sat by Pulse 100 98 98 Oximetry 12/22/20 11:00 Temperature [ Temporal] Pulse, 86 Peripheral [ Right Pulse Oximetry] Respiratory 16 Rate Blood Pressure 96/57 L [Right Upper Arm] O2 Sat by Pulse 98 Oximetry - Orders/Labs/Meds Orders: Active Orders 24 hr Category Date Time Status Obtain Past Medical Record [OM.PC] Routine Oth 12/22/20 09:26 Active Peripheral IV Insertion Adult [OM.PC] Stat Oth 12/22/20 09:28 Ordered Labs: None Meds: Medications Discontinued Medications Generic Name Dose Route Start Last Admin Trade Name Alonso PRN Reason Stop Dose Admin Diphenhydramine HCl 50 mg 12/22/20 09:28 12/22/20 09:45 Diphenhydramine 50 Mg/Ml Sdv IVPUSH 12/22/20 09:29 50 mg ONETIME ONE Administration Epinephrine HCl 0.3 mg 12/22/20 09:26 12/22/20 09:44 Epinephrine 1 Mg/1 Ml Amp IM 12/22/20 09:27 0.3 mg ONETIME ONE Administration Famotidine 40 mg 12/22/20 09:28 12/22/20 09:45 Famotidine 20 Mg/2 Ml Sdv IVPUSH 12/22/20 09:29 40 mg ONETIME ONE Administration Norflurane Confirm 12/22/20 09:28 12/22/20 09:49 Norflurane/Hfc 245fa Medium [place] 103.5 Ml Can Administered 12/22/20 09:29 103.5 ml Dose Administration 103.5 ml .ROUTE .STK-MED ONE Sodium Chloride 10 ml 12/22/20 09:28 12/22/20 09:49 Sodium Chloride 0.9% 10 Ml Syringe FLUSH 10 ml ASDIRECTED PRN Administration Keep Vein Open - Radiology Interpretation Free Text/Narrative:: None Departure - Departure Time of Disposition: 11:20 Disposition: Home, Self-Care 01 Condition: Good Clinical Impression: Tobacco abuse counseling, Mixed anxiety depressive disorder Allergic reaction caused by a drug Qualifiers: Encounter type: initial encounter Qualified Code(s): T78.40XA - Allergy, unspecified, initial encounter Crohn's disease Qualifiers: Gastrointestinal tract location: small and large intestine Digestive disease complication type: without complication Qualified Code(s): K50.80 - Crohn's disease of both small and large intestine without complications - Discharge Information *PRESCRIPTION DRUG MONITORING PROGRAM REVIEWED*: Not Applicable *COPY OF PRESCRIPTION DRUG MONITORING REPORT IN PATIENT AJIT: Not Applicable Prescriptions: Famotidine [Pepcid] 20 mg PO BID #14 tab Instructions: Drug Rash Referrals: Lucretia Baez NP [Primary Care Provider] - Forms: ED Department Discharge Additional Instructions: 1. Follow up with your regular provider in 10-14 days as needed, if symptoms persist. Bring these discharge instructions with you to that visit. 2. Sign release of medical records from this emergency room visit for your property man to review with consideration of medication change, premedication before next injection of Cimzia, etc. as discussed 3. Sedation precautions with no driving, etc. for 12 hours because of emergency room medications. 4. Continue to use your previous hydroxyzine as needed with next dose in 4 hours secondary to medications given in the emergency room. Caution when using this medication in conjunction with Compazine with additional sedation precautions with these medications also as discussed. 5. Continue to use the Pepcid for 1 week then as needed thereafter as discussed with next dose tomorrow morning 6. Immediately after this visit verify that your cellular telephone's voicemail has been activated and is empty. Also verify that your home telephone's answering machine is operating properly and has space to receive messages. Note that it is sometimes necessary for us to be able to contact you at a later date to discuss your medical care. 7. Please remember that we are ALWAYS here for you and want to answer any questions you may have. Feel free to call the hospital any time and we call you back ERASMO. Sepsis Event Note (ED) - Evaluation Sepsis Screening Result: No Definite Risk - Focused Exam Vital Signs: Vital Signs Temp Pulse Resp BP Pulse Ox 12/22/20 11:00 86 16 96/57 L 98 12/22/20 10:30 91 16 126/83 98 12/22/20 10:01 87 16 105/72 98 12/22/20 09:30 37.0 C 102 H 18 111/58 L 100 - Problem List & Annotations (1) Allergic reaction caused by a drug SNOMED Code(s): 311139772 Code(s): T78.40XA - ALLERGY, UNSPECIFIED, INITIAL ENCOUNTER Status: Acute Priority: High Onset Date: 12/22/20 Annotation/Comment:: Overall good results with treatment as above. Patient has intolerance to prednisone including some psychosis, etc. with IV Solu-Medrol held at this time. Sedation, etc. precautions were given. Note that this is a repeat allergic reaction with the second loading dose with similar but less severe reaction with her initial dose of Cimzia. She will discuss this further with her GI specialist with records released from this emergency room to that office today. Qualifiers: Encounter type: initial encounter Qualified Code(s): T78.40XA - Allergy, unspecified, initial encounter (2) Crohn's disease SNOMED Code(s): 23818811 Code(s): K50.90 - CROHN'S DISEASE, UNSPECIFIED, WITHOUT COMPLICATIONS Status: Chronic Priority: Medium Annotation/Comment:: Moderate control based on patient's history. Qualifiers: Gastrointestinal tract location: small and large intestine Digestive disease complication type: without complication Qualified Code(s): K50.80 - Crohn's disease of both small and large intestine without complications (3) Mixed anxiety depressive disorder SNOMED Code(s): 616959589 Code(s): F41.8 - OTHER SPECIFIED ANXIETY DISORDERS Status: Chronic Priority: Medium Annotation/Comment:: Moderate control based on today's exam. Continue to observe closely by her regular providers. (4) Tobacco abuse counseling SNOMED Code(s): 683149361, 162962324, 170293253 Code(s): Z71.6 - TOBACCO ABUSE COUNSELING Status: Chronic Priority: Medium Annotation/Comment:: Tobacco cessation strongly encouraged with the patient apparently already having information at home. - Problem List Review Problem List Initiated/Reviewed/Updated: Yes - My Orders Last 24 Hours: My Active Orders 12/22/20 09:26 Obtain Past Medical Record [OM.PC] Routine 12/22/20 09:28 Peripheral IV Insertion Adult [OM.PC] Stat - Assessment/Plan Last 24 Hours: My Active Orders 12/22/20 09:26 Obtain Past Medical Record [OM.PC] Routine 12/22/20 09:28 Peripheral IV Insertion Adult [OM.PC] Stat Assessment:: As above Plan: As above. Extensive precautions were given to the patient, who is in agreement with the treatment plan. See Patient Instructions for further treatment and plan.
--- NOTE | 2020-12-23 21:19 | PCM.DCSUM1 ---
Discharge Summary - Hospital Course Free Text/Narrative:: Pt. is feeling better and is eager to be discharged. She states that she is not experiencing any itching, trouble breathing, or throat tightness. Denies any nausea, vomiting, or diarrhea. Vitals have been stable. She has not been experiencing any tachypnea. O2 saturations have been in the high 90s. Pt. denies any headache. No chest pain or palpitations. Denies any lightheadedness. Diagnosis: Stroke: No - Discharge Data Discharge Date: 12/23/20 Discharge Disposition: Home, Self-Care 01 Condition: Good - Referral to Home Health Primary Care Physician: Lucretia Baez IT SYSTEMS ANALYST - Discharge Plan *PRESCRIPTION DRUG MONITORING PROGRAM REVIEWED*: Not Applicable *COPY OF PRESCRIPTION DRUG MONITORING REPORT IN PATIENT AJIT: Not Applicable Prescriptions/Med Rec: Famotidine [Pepcid] 20 mg PO BID #14 tab Home Medications: Home Meds Non-Formulary Medication [NF Drug] 6 mg PO BEDTIME 10/07/20 [History] ALPRAZolam [Xanax] 1 tab PO ASDIRECTED PRN 12/22/20 [History] Cyanocobalamin (Vitamin B-12) [B-12 Compliance] 2 ml PO WEEKLY 12/22/20 [History] Cyclobenzaprine [Flexeril] 1 tab PO TID PRN 12/22/20 [History] FLUoxetine [PROzac] 60 mg PO DAILY 12/22/20 [History] Famotidine [Pepcid] 20 mg PO BID #14 tab 12/22/20 [Rx] Omeprazole 1 tab PO DAILY 12/22/20 [History] Potassium Chloride [Klor-Con 10] 60 meq PO TID 12/22/20 [History] Prochlorperazine [Compazine] 5 mg PO DAILY PRN 12/22/20 [History] Propranolol HCl [Inderal Xl] 1 cap PO DAILY 12/22/20 [History] Rizatriptan Benzoate [Rizatriptan] 1 tab PO DAILY PRN 12/22/20 [History] busPIRone [Buspar] 1 tab PO BID 12/22/20 [History] hydrOXYzine HCL [Hydroxyzine HCl] 1 tab PO ASDIRECTED PRN 12/22/20 [History] Doxycycline Monohydrate 100 mg PO BID #20 cap 12/23/20 [Rx] Patient Handouts: Drug Rash Forms: ED Department Discharge Referrals: Lucretia Baez NP [Primary Care Provider] - - Discharge Summary/Plan Comment DC Time >30 min.: Yes Discharge Summary/Plan Comment: Cefpodoxime 200mg 1 twice daily for 10 days Doxycycline 100mg 1 twice daily for 10 days Drink plenty of fluids. Recheck in clinic in 10-14 days Return to ER if you have any trouble breathing, lightheadedness, throat tightness, or chest pain. - General Info Date of Service: 12/23/20 Functional Status: Reports: Pain Controlled, Tolerating Diet, Ambulating, Urinating, New Symptoms - Review of Systems General: Reports: No Symptoms HEENT: Reports: No Symptoms Pulmonary: Reports: No Symptoms Cardiovascular: Reports: No Symptoms Gastrointestinal: Reports: No Symptoms Genitourinary: Reports: No Symptoms Musculoskeletal: Reports: No Symptoms Skin: Reports: No Symptoms Neurological: Reports: No Symptoms Psychiatric: Reports: No Symptoms - Patient Data Vitals - Most Recent: Last Vital Signs Temp 36.5 C 12/23/20 11:38 Pulse 84 12/23/20 11:38 Resp 16 12/23/20 11:38 BP 98/57 L 12/23/20 11:38 Pulse Ox 98 12/23/20 11:38 Weight - Most Recent: 63.503 kg Med Orders - Current: Current Medications Discontinued Medications Diphenhydramine HCl (Diphenhydramine 50 Mg/Ml Sdv) 50 mg IVPUSH ONETIME ONE Stop: 12/22/20 09:29 Last Admin: 12/22/20 09:45 Dose: 50 mg Documented by: Epinephrine HCl (Epinephrine 1 Mg/1 Ml Amp) 0.3 mg IM ONETIME ONE Stop: 12/22/20 09:27 Last Admin: 12/22/20 09:44 Dose: 0.3 mg Documented by: Famotidine (Famotidine 20 Mg/2 Ml Sdv) 40 mg IVPUSH ONETIME ONE Stop: 12/22/20 09:29 Last Admin: 12/22/20 09:45 Dose: 40 mg Documented by: Norflurane (Norflurane/Hfc 245fa Medium [place] 103.5 Ml Can) Confirm Administered Dose 103.5 ml .ROUTE .STK-MED ONE Stop: 12/22/20 09:29 Last Admin: 12/22/20 09:49 Dose: 103.5 ml Documented by: Sodium Chloride (Sodium Chloride 0.9% 10 Ml Syringe) 10 ml FLUSH ASDIRECTED PRN PRN Reason: Keep Vein Open Last Admin: 12/22/20 09:49 Dose: 10 ml Documented by: - Exam General: Reports: Alert, Oriented Lungs: Reports: Clear to Auscultation, Normal Respiratory Effort Cardiovascular: Reports: Regular Rate, Regular Rhythm GI/Abdominal Exam: Normal Bowel Sounds, Soft, Non-Tender, No Distention, No Mass (Female) Exam: Deferred Rectal (Female) Exam: Deferred Back Exam: Reports: Normal Inspection, Full Range of Motion Extremities: Normal Inspection, Normal Range of Motion, Non-Tender, No Pedal Edema, Normal Capillary Refill Skin: Reports: Warm, Dry, Intact Neurological: Reports: No New Focal Deficit Psy/Mental Status: Reports: Alert, Normal Affect, Normal Mood
== END 2020-12-22 21:14 | disposition home or self-care (01) ==
LOC: LL.ED 09:23
DX: K50.80 Crohn's disease of both small and large intestine without complications (principal); T45.1X5A Adverse effect of antineoplastic and immunosuppressive drugs, initial encounter; F41.8 Other specified anxiety disorders; I10 Essential (primary) hypertension; K21.9 Gastro-esophageal reflux disease without esophagitis; E66.9 Obesity, unspecified; Z72.0 Tobacco use; Z71.6 Tobacco abuse counseling; Z88.5 Allergy status to narcotic agent; Z88.8 Allergy status to other drugs, medicaments and biological substances; Z91.040 Latex allergy status; Z79.899 Other long term (current) drug therapy; Z68.30 Body mass index [BMI] 30.0-30.9, adult
CPT/HCPCS: 96372; 96374; 96375; 99283; J0171; J1200; J3490; 99284

== ENCOUNTER 2020-12-22 13:34 | Observation (INO) | payer OTHER ==
[~2020-12-22 13:34] MED LIST: Iopamidol 755 Mg/ML 100 ML Bottle IVPUSH ONE
[2020-12-22] MEDS ORDERED: Aspirin 81 MG Tab.Chew CHEW ONE (13:42)
[2020-12-22] MEDS ORDERED: Ticagrelor 90 MG Tab PO ONE (13:42)
--- NOTE | 2020-12-22 13:42 | EDM.PDOC ---
ED HPI GENERAL MEDICAL PROBLEM - General Chief Complaint: Chest Pain Stated Complaint: chest pain Time Seen by Provider: 12/22/20 13:34 Source of Information: Reports: Patient, EMS, Old Records ([facility] chart/EMR). Denies: EMS Notes Reviewed (Not available at time of dictation) History Limitations: Reports: No Limitations - History of Present Illness INITIAL COMMENTS - FREE TEXT/NARRATIVE: The patient was brought to the emergency room via ambulance with sample body builder accompaniment with saline lock placed, oxygen started 4 L/min by nasal cannula with initial oxygen mask therapy, Zofran 4 mg IV x2, normal saline started at 100 cc/h, and 1 sublingual nitroglycerin tablet given prior to arrival. EKG was also conducted with no evidence of significant findings. Note that the patient was seen earlier in this facility for an allergic reaction with high-dose IV Pepcid and subcu epinephrine given at that time and improved symptoms prior to discharge from our emergency room this morning. Her hives have continued to increase with beginning dyspnea, nausea, 3 episodes of emesis, and initial 6/10 retrosternal chest pressure radiating to the intrascapular region. After sublingual nitroglycerin tablet her chest pressure has improved to 2/10. The patient denies any heart flutter, orthostasis, orthopnea, diaphoresis, paresthesias, recent decreased exercise tolerance, or any other anginal-type symptoms, although some nonspecific dizziness and generalized weakness with onset of the above symptoms at about 12:30 PM this afternoon. No recent history of abdominal pain, heartburn, diarrhea, melena, gross hematochezia, or any food intolerance, including fatty foods, etc.. The patient also denies any recent fever, cough, wheezing, dyspnea, etc.. No history of recent headaches, visual changes, diplopia, change in mental status, or other change in neurological status. Onset: Today, Sudden Onset Date: 12/22/20 Onset Time: 12:30 Duration: Constant, Improving Location: Reports: Chest, Back (As above), Radiates to (As above). Denies: Head, Face, Neck, Abdomen, Pelvis, Upper Extremity, Left, Upper Extremity, Right Quality: Reports: Pressure Severity: Moderate Worsens with: Reports: Medication (As above) Context: Reports: Other (As above). Denies: Sick Contact, Trauma Associated Symptoms: Reports: Chest Pain, Nausea/Vomiting, Rash, Shortness of Breath, Weakness. Denies: Confusion, Cough, Diaphoresis, Fever/Chills, Headaches, Loss of Appetite, Malaise, Seizure, Syncope Treatments X RAY INSPECTOR: Reports: IV/IO, Nitroglycerin, Oxygen, Other (see below) (As above) Middle Chest Pain Score (Numeric/FACES): 2 - Related Data Allergies Allergy/AdvReac Type Severity Reaction Status Date / Time paroxetine HCl [From Paxil] Allergy Unknown paranoia Verified 12/22/20 09:53 aripiprazole [From Abilify] Allergy Irritabilit Verified 12/22/20 09:53 y bupropion [From Wellbutrin] Allergy Hallucinati Verified 12/22/20 09:53 ons certolizumab pegol Allergy Rash Verified 12/22/20 09:53 [From Cimzia] denosumab [From Prolia] Allergy Other Verified 12/22/20 09:53 latex Allergy hot Verified 12/22/20 09:53 "inflammed" rash prednisone Allergy paranoia Verified 12/22/20 09:53 Home Meds: Home Meds Non-Formulary Medication [NF Drug] 6 mg PO BEDTIME 10/07/20 [History] ALPRAZolam [Xanax] 1 tab PO ASDIRECTED PRN 12/22/20 [History] Certolizumab Pegol [Cimzia] 400 mg SUBCUT ASDIRECTED 12/22/20 [History] Cyanocobalamin (Vitamin B-12) [B-12 Compliance] 2 ml PO WEEKLY 12/22/20 [History] Cyclobenzaprine [Flexeril] 1 tab PO TID PRN 12/22/20 [History] FLUoxetine [PROzac] 60 mg PO DAILY 12/22/20 [History] Famotidine [Pepcid] 20 mg PO BID #14 tab 12/22/20 [Rx] Omeprazole 1 tab PO DAILY 12/22/20 [History] Potassium Chloride [Klor-Con 10] 60 meq PO TID 12/22/20 [History] Prochlorperazine [Compazine] 5 mg PO DAILY PRN 12/22/20 [History] Propranolol HCl [Inderal Xl] 1 cap PO DAILY 12/22/20 [History] Rizatriptan Benzoate [Rizatriptan] 1 tab PO DAILY PRN 12/22/20 [History] busPIRone [Buspar] 1 tab PO BID 12/22/20 [History] hydrOXYzine HCL [Hydroxyzine HCl] 1 tab PO ASDIRECTED PRN 12/22/20 [History] Past Medical History Other HEENT History: wears glasses Cardiovascular History: Reports: Hypertension, Other (See Below) Other Cardiovascular History: pt has chest discomfort when potassium levels are low. Respiratory History: Reports: None Gastrointestinal History: Reports: Inflammatory Bowel Disease Other Gastrointestinal History: Chrohn's Disease Genitourinary History: Reports: None DROP CLIPPER History: Reports: None Musculoskeletal History: Reports: None Neurological History: Reports: Migraines Psychiatric History: Reports: Anxiety Endocrine/Metabolic History: Reports: Hypokalemia Hematologic History: Reports: Anemia Immunologic History: Reports: None Oncologic (Cancer) History: Reports: None Dermatologic History: Reports: None - Infectious Disease History Infectious Disease History: Reports: None Social & Family History - Caffeine Use Caffeine Use: Reports: Soda ED ROS GENERAL - Review of Systems Review Of Systems: Comprehensive ROS is negative, except as noted in HPI. ED EXAM, GENERAL - Physical Exam Exam: See Below Exam Limited By: No Limitations General Appearance: Alert, WD/WN, No Apparent Distress, Anxious (Moderate) Eye Exam: Bilateral Eye: EOMI, Normal Inspection (Patient is wearing glasses. No vertigo or nystagmus), PERRL Ears: Normal External Exam, Normal Canal, Hearing Grossly Normal, Normal TMs Nose: Normal Inspection, Normal Mucosa, No Blood Throat/Mouth: Normal Inspection, Normal Lips, Normal Gums, Normal Oropharynx, Normal Voice, No Airway Compromise. No: Normal Teeth (Complete dentures uppers and lowers), Dysphagia, Inflammation, Perioral Cyanosis Head: Atraumatic, Normocephalic, Other (No facial angioedema). No: Facial Swelling, Facial Tenderness, Sinus Tenderness Neck: Normal Inspection, Supple, Non-Tender, Full Range of Motion. No: Carotid Bruit, Lymphadenopathy (L), Lymphadenopathy (R), Thyromegaly Respiratory/Chest: No Respiratory Distress, Lungs Clear, Normal Breath Sounds, No Accessory Muscle Use, Chest Non-Tender. No: Pleural Rub, Retractions Cardiovascular: Normal Peripheral Pulses, No Edema, No Gallop, No JVD, No Murmur, No Rub, Tachycardia (Regular rhythm). No: Gallop/S3, Gallop/S4, Friction Rub Peripheral Pulses: 2+: Radial (L), Radial (R), Dorsalis Pedis (L), Dorsalis Pedis (R) GI/Abdominal: Normal Bowel Sounds, Soft, Non-Tender, No Organomegaly, No Distention, No Abnormal Bruit, No Mass, Pelvis Stable. No: Guarding (Female) Exam: Deferred Rectal (Female) Exam: Deferred Back Exam: Normal Inspection, Full Range of Motion. No: CVA Tenderness (L), CVA Tenderness (R), Muscle Spasm Extremities: Normal Inspection, Normal Range of Motion, Non-Tender, No Pedal Edema, Normal Capillary Refill. No: Gabriela's Sign Neurological: Alert, Oriented, CN II-XII Intact, Normal Cognition, Normal Gait, Normal Reflexes (Negative Babinski's), No Motor/Sensory Deficits Psychiatric: Anxious (Moderate), Depressed Mood (Mild) Skin Exam: Warm, Dry, Intact, Normal Color, Erythema, Rash (Progressive diffuse mildly confluent macular urticarial rash from the lower abdominal region to her lower extremities bilaterally), Wound/Incision (Erythema at left lower lobe injection site of 1 cm in diameter with no current purulent drainage, etc.). No: Diaphoretic Lymphatic: No Adenopathy #1 Interpretation EKG Date: 12/22/20 Time: 13:51 Rhythm: NSR Rate (Beats/Min): 91 [place]: Normal P-Wave: Enlarged (Mild diffuse biphasic) QRS: Normal (0.08 seconds) ST-T: Other (Diffuse nonspecific ST changes improved from similar changes in pranay ds II, III, aVF, and V2 through V6 since last EKG on 06/19/2018. In addition resolved T wave inversion lead V1 since that time) QT: Prolonged (New at 588/723 ms) OH/PQ Interval: 0.13 seconds representing a stable short OH interval with resolved pulmonary hypertension by EKG and no evidence of delta waves. Comparison: Change From Previous EKG (As above) EKG Interpretation Comments: 1. No acute ischemic changes 2. Short OH interval 3. Left atrial enlargement Course - Vital Signs Last Recorded V/S: Last Vital Signs Temp 36.6 C 12/22/20 13:36 Pulse 88 05/21/21 14:56 Resp 16 12/22/20 14:56 BP 101/72 12/22/20 14:56 Pulse Ox 97 12/22/20 14:56 - Orders/Labs/Meds Orders: Active Orders 24 hr Category Date Time Status Blood Glucose Check, Bedside [RC] STAT Care 12/22/20 13:44 Active Cardiac Monitoring [RC] . DIRECTED Care 12/22/20 13:42 Active EKG Documentation Completion [RC] ASDIRECTED Care 12/22/20 13:42 Active Oxygen Therapy, ED [RC] CONTINUOUS Care 12/22/20 13:42 Active Peripheral IV Care [RC] . DIRECTED Care 12/22/20 13:42 Active Pulse Oximetry [RC] CONTINUOUS Care 12/22/20 13:42 Active Up With Assistance [RC] PFP Care 12/22/20 13:42 Active Vital Signs [RC] PFP Care 12/22/20 13:42 Active Nothing per Oral Now Diet [DIET] Diet 12/22/20 Breakfast Active Chest 1V Frontal [CR] Stat Exams 12/22/20 13:42 Taken Chest PE [Ang Chest] [CT] Stat Exams 12/22/20 15:11 Ordered CULTURE BLOOD [BC] Stat Lab 12/22/20 13:54 Received CULTURE BLOOD [BC] Stat Lab 12/22/20 13:59 Received Sodium Chloride 0.9% [Saline Flush] Med 12/22/20 13:42 Active 10 ml FLUSH ASDIRECTED PRN Blood Culture x2 Reflex Set [OM.PC] Urgent Oth 12/22/20 13:43 Ordered Isolation [COMM] Routine Oth 12/22/20 14:22 Active Obtain Past Medical Record [OM.PC] Urgent Oth 12/22/20 13:42 Active Peripheral IV Insertion Adult [OM.PC] Stat Oth 12/22/20 13:42 Ordered Resuscitation Status Stat Resus Stat 12/22/20 13:42 Ordered Medication Orders Sodium Chloride (Sodium Chloride 0.9% 10 Ml Syringe) 10 ml FLUSH ASDIRECTED PRN PRN Reason: Keep Vein Open Last Admin: 12/22/20 14:20 Dose: 10 ml Documented by: Admin: 12/22/20 13:50 Dose: 10 ml Documented by: ERNIE Labs: Laboratory Tests 12/22/20 12/22/20 12/22/20 Range/Units 13:54 13:54 13:54 WBC 19.9 H (4.0-10.2) K/uL RBC 5.70 H (3.77-5.09) M/uL Hgb 17.4 H (11.7-15.5) g/dL Hct 49.4 H (34.0-46.0) % MCV 86.7 (84.0-98.0) fL MCH 30.5 (28.2-33.3) pg MCHC 35.2 (31.7-36.0) g/dL RDW 14.9 H (11.2-14.1) % Plt Count 325 (150-350) K/uL Neut % (Auto) 73.3 (45.0-80.0) % Lymph % (Auto) 21.6 (10.0-50.0) % [place] % (Auto) 4.9 (2.0-14.0) % Eos % (Auto) 0.1 (0.0-5.0) % Baso % (Auto) 0.1 (0.0-2.0) % Neut # (Auto) 14.58 H (1.40-7.00) K/uL Lymph # (Auto) 4.30 H (0.50-3.50) K/uL [place] # (Auto) 0.98 (0.00-1.00) K/uL Eos # (Auto) 0.02 (0.00-0.50) K/uL Baso # (Auto) 0.02 (0.00-0.20) K/uL PT 10.0 (9.5-12.0) SEC INR 1.0 APTT 23.1 L (24.5-32.8) SEC D-Dimer, Quantitative 2350 H (0-400) ng/mL Sodium (136-145) mmol/L Potassium (3.5-5.1) mmol/L Chloride (98-107) mmol/L Carbon Dioxide (21.0-32.0) mmol/L BUN (7-18) mg/dL Creatinine (0.51-1.17) mg/dL Est Cr Clr Drug Dosing Estimated GFR (MDRD) mL/min Glucose (70-99) mg/dL Lactic Acid (0.4-2.0) mmol/L Uric Acid (2.6-7.2) mg/dL Calcium (8.5-10.1) mg/dL Magnesium (1.8-2.4) mg/dL Total Bilirubin (0.2-1.0) mg/dL AST (15-37) U/L ALT (12-78) U/L Alkaline Phosphatase (46-116) IU/L Creatine Kinase (26-308) U/L Creatine Kinase Index (0.0-2.5) % CK-MB (CK-2) (0.00-3.60) ng/mL Troponin I (0.000-0.056) ng/mL NT-Pro-B Natriuret Pep (0-125) pg/mL Total Protein (6.4-8.2) g/dL Albumin (3.4-5.0) g/dL Amylase (25-115) U/L Lipase (73-393) U/L TSH, Ultra Sensitive (0.358-3.740) mIU/mL SARS-CoV-2 RNA (RICARDA) (NEGATIVE) 12/22/20 12/22/20 12/22/20 Range/Units 13:54 13:54 13:54 WBC (4.0-10.2) K/uL RBC (3.77-5.09) M/uL Hgb (11.7-15.5) g/dL Hct (34.0-46.0) % MCV (84.0-98.0) fL MCH (28.2-33.3) pg MCHC (31.7-36.0) g/dL RDW (11.2-14.1) % Plt Count (150-350) K/uL Neut % (Auto) (45.0-80.0) % Lymph % (Auto) (10.0-50.0) % [place] % (Auto) (2.0-14.0) % Eos % (Auto) (0.0-5.0) % Baso % (Auto) (0.0-2.0) % Neut # (Auto) (1.40-7.00) K/uL Lymph # (Auto) (0.50-3.50) K/uL [place] # (Auto) (0.00-1.00) K/uL Eos # (Auto) (0.00-0.50) K/uL Baso # (Auto) (0.00-0.20) K/uL PT (9.5-12.0) SEC INR APTT (24.5-32.8) SEC D-Dimer, Quantitative (0-400) ng/mL Sodium 140 (136-145) mmol/L Potassium 2.4 L* (3.5-5.1) mmol/L Chloride 105 (98-107) mmol/L Carbon Dioxide 23.6 (21.0-32.0) mmol/L BUN 6 L (7-18) mg/dL Creatinine 0.78 (0.51-1.17) mg/dL Est Cr Clr Drug Dosing TNP Estimated GFR (MDRD) > 60 mL/min Glucose 131 H (70-99) mg/dL Lactic Acid 1.3 (0.4-2.0) mmol/L Uric Acid 4.8 (2.6-7.2) mg/dL Calcium 8.6 (8.5-10.1) mg/dL Magnesium 1.4 L (1.8-2.4) mg/dL Total Bilirubin 0.5 (0.2-1.0) mg/dL AST 23 (15-37) U/L ALT 30 (12-78) U/L Alkaline Phosphatase 103 (46-116) IU/L Creatine Kinase 22 L (26-308) U/L Creatine Kinase Index 1.8 (0.0-2.5) % CK-MB (CK-2) 0.40 (0.00-3.60) ng/mL Troponin I 0.000 (0.000-0.056) ng/mL NT-Pro-B Natriuret Pep 134 H (0-125) pg/mL Total Protein 6.7 (6.4-8.2) g/dL Albumin 2.9 L (3.4-5.0) g/dL Amylase 43 (25-115) U/L Lipase 140 (73-393) U/L TSH, Ultra Sensitive 1.893 (0.358-3.740) mIU/mL SARS-CoV-2 RNA (RICARDA) (NEGATIVE) 12/22/20 Range/Units 14:25 WBC (4.0-10.2) K/uL RBC (3.77-5.09) M/uL Hgb (11.7-15.5) g/dL Hct (34.0-46.0) % MCV (84.0-98.0) fL MCH (28.2-33.3) pg MCHC (31.7-36.0) g/dL RDW (11.2-14.1) % Plt Count (150-350) K/uL Neut % (Auto) (45.0-80.0) % Lymph % (Auto) (10.0-50.0) % [place] % (Auto) (2.0-14.0) % Eos % (Auto) (0.0-5.0) % Baso % (Auto) (0.0-2.0) % Neut # (Auto) (1.40-7.00) K/uL Lymph # (Auto) (0.50-3.50) K/uL [place] # (Auto) (0.00-1.00) K/uL Eos # (Auto) (0.00-0.50) K/uL Baso # (Auto) (0.00-0.20) K/uL PT (9.5-12.0) SEC INR APTT (24.5-32.8) SEC D-Dimer, Quantitative (0-400) ng/mL Sodium (136-145) mmol/L Potassium (3.5-5.1) mmol/L Chloride (98-107) mmol/L Carbon Dioxide (21.0-32.0) mmol/L BUN (7-18) mg/dL Creatinine (0.51-1.17) mg/dL Est Cr Clr Drug Dosing Estimated GFR (MDRD) mL/min Glucose (70-99) mg/dL Lactic Acid (0.4-2.0) mmol/L Uric Acid (2.6-7.2) mg/dL Calcium (8.5-10.1) mg/dL Magnesium (1.8-2.4) mg/dL Total Bilirubin (0.2-1.0) mg/dL AST (15-37) U/L ALT (12-78) U/L Alkaline Phosphatase (46-116) IU/L Creatine Kinase (26-308) U/L Creatine Kinase Index (0.0-2.5) % CK-MB (CK-2) (0.00-3.60) ng/mL Troponin I (0.000-0.056) ng/mL NT-Pro-B Natriuret Pep (0-125) pg/mL Total Protein (6.4-8.2) g/dL Albumin (3.4-5.0) g/dL Amylase (25-115) U/L Lipase (73-393) U/L TSH, Ultra Sensitive (0.358-3.740) mIU/mL SARS-CoV-2 RNA (RICARDA) Negative (NEGATIVE) Meds: Medications Generic Name Dose Route Start Last Admin Trade Name Freq PRN Reason Stop Dose Admin Sodium Chloride 10 ml 12/22/20 13:42 12/22/20 14:20 Sodium Chloride 0.9% 10 Ml Syringe FLUSH 10 ml ASDIRECTED PRN Administration Keep Vein Open Discontinued Medications Generic Name Dose Route Start Last Admin Trade Name Freq PRN Reason Stop Dose Admin Ceftriaxone Sodium 2 gm 12/22/20 15:12 Ceftriaxone 2 Gm Vial IVPUSH 12/22/20 15:13 ONETIME ONE Lactated Ringer's 1,000 mls @ 999 mls/hr 12/22/20 13:44 12/22/20 13:48 Ringers, Lactated IV 12/22/20 14:44 999 mls/hr .BOLUS ONE Administration Iopamidol 100 ml 12/22/20 13:00 Iopamidol 755 Mg/Ml 100 Ml Bottle IVPUSH 12/22/20 13:01 ONETIME ONE Iopamidol 100 ml 12/22/20 15:30 Iopamidol 755 Mg/Ml 100 Ml Bottle IVPUSH 12/22/20 15:31 ONETIME ONE Methylprednisolone Sodium Succinate 125 mg 12/22/20 13:44 12/22/20 13:50 Methylprednisolone Sodium Succinate 125 Mg/2 Ml Sdv IVPUSH 12/22/20 13:45 125 mg ONETIME ONE Administration Metoclopramide HCl 10 mg 12/22/20 14:15 12/22/20 14:20 Metoclopramide 10 Mg/2 Ml Sdv IVPUSH 12/22/20 14:16 10 mg ONETIME ONE Administration Ticagrelor 180 mg 12/22/20 13:42 12/22/20 13:50 Ticagrelor 90 Mg Tab PO 12/22/20 13:43 180 mg ONETIME ONE Administration - Radiology Interpretation Free Text/Narrative:: equipment monitor phototypesetting showed initial mild sinus tachycardia in the low 100s with no ectopy or arrhythmia with improvement to the 80s to the 90s shortly after patient's arrival Chest x-ray, portable, shows moderate pulmonary obstructive disease with no pulmonary infiltrates, pneumothorax, cardiomegaly, CHF, etc. Departure - Departure Disposition: Refer to Observation Condition: Good Clinical Impression: Hypokalemia, Mixed anxiety depressive disorder, Tobacco abuse counseling, Hypomagnesemia, Hypoalbuminemia, D-dimer, elevated, Shortened OH interval Allergic reaction caused by a drug Qualifiers: Encounter type: initial encounter Qualified Code(s): T78.40XA - Allergy, unspecified, initial encounter Chest pain Qualifiers: Chest pain type: precordial pain Qualified Code(s): R07.2 - Precordial pain Referrals: Lucretia Baez NP [Primary Care Provider] - Forms: ED Department Discharge Care Plan Goals: See plan Sepsis Event Note (ED) - Evaluation Sepsis Screening Result: No Definite Risk - Focused Exam Vital Signs: Vital Signs Temp Pulse Resp BP Pulse Ox 12/22/20 14:56 88 16 101/72 97 12/22/20 13:36 36.6 C 103 H 14 80/58 L 90 L - Problem List & Annotations (1) D-dimer, elevated SNOMED Code(s): 528865494 Code(s): R79.89 - OTHER SPECIFIED ABNORMAL FINDINGS OF BLOOD CHEMISTRY Status: Acute Priority: High Onset Date: 12/22/20 Annotation/Comment:: Note CTA of the chest results as above. Consider venous Doppler studies of the lower extremities, which are not available in this facility until 12/26/2020. (2) Allergic reaction caused by a drug SNOMED Code(s): 743895003 Code(s): T78.40XA - ALLERGY, UNSPECIFIED, INITIAL ENCOUNTER Status: Acute Priority: High Onset Date: 12/22/20 Annotation/Comment:: Secondary to progressive rash and her above symptoms patient was given 1 dose of IV Solu- Medrol IV with continuation of this therapy during this hospitalization. Note previous overall good results with treatment initially in the emergency room ear lier this morning after as per that emergency room note. Patient has intolerance to prednisone including some psychosis, etc. with IV Solu-Medrol held at this time. Sedation, etc. precautions were given. Note that this is a repeat allergic reaction with the second loading dose with similar but less severe reaction with her initial dose of Cimzia. She will discuss this further with her GI specialist with records released from previous emergency room to that office earlier today. Qualifiers: Encounter type: initial encounter Qualified Code(s): T78.40XA - Allergy, unspecified, initial encounter (3) Hypoalbuminemia SNOMED Code(s): 600031364 Code(s): E88.09 - [facility] DISORDERS OF PLASMA-PROTEIN METABOLISM, NEC Status: Acute Priority: Medium Onset Date: 12/22/20 Annotation/Comment:: Observe for now (4) Hypokalemia SNOMED Code(s): 35242568 Code(s): E87.6 - HYPOKALEMIA Status: Acute Priority: High Onset Date: 12/22/20 Annotation/Comment:: Note chronic problem secondary to her Crohn's disease with likely exacerbation secondary to her recurrent episodes of emesis prior to arrival. 1 L IV bolus of lactated Ringer's given in the emergency room with subsequent IV and oral potassium chloride supplementation. Note nonspecific ST changes consistent with her mild hypokalemia. (5) Hypomagnesemia SNOMED Code(s): 912745062 Code(s): E83.42 - HYPOMAGNESEMIA Status: Acute Priority: High Onset Date: 12/22/20 Annotation/Comment:: Either IV or oral magnesium supplementation depending on her clinical course with no IV magnesium sulfate for now secondary to her borderline hypotension. (6) Migraine SNOMED Code(s): 51377229 Code(s): G43.909 - MIGRAINE, UNSP, NOT INTRACTABLE, WITHOUT STATUS MIGRAINOSUS Status: Chronic Priority: Medium Annotation/Comment:: Stable by history (7) Crohn's disease SNOMED Code(s): 45289677 Code(s): K50.90 - CROHN'S DISEASE, UNSPECIFIED, WITHOUT COMPLICATIONS Status: Chronic Priority: Medium Annotation/Comment:: Moderate control based on patient's history with current immunotherapy as above. Qualifiers: Gastrointestinal tract location: small and large intestine Digestive disease complication type: without complication Qualified Code(s): K50.80 - Crohn's disease of both small and large intestine without complications (8) Chest pain SNOMED Code(s): 20662173 Code(s): R07.9 - CHEST PAIN, UNSPECIFIED Status: Acute Priority: High Onset Date: 12/22/20 Annotation/Comment:: Chest pain protocol initiated by the sample body builder prior to arrival with 4 baby aspirin chew and swallow given by the sample body builder. Chest pain protocol was continued in our facility, including Brilinta, etc. as above. Note nonspecific ST changes likely secondary to her hypokalemia with similar symptoms in the past with her hypoglycemia. Initiate standard rule out SD orders. Cardiology consultation depending on her clinical course. Qualifiers: Chest pain type: precordial pain Qualified Code(s): R07.2 - Precordial pain (9) Shortened OH interval SNOMED Code(s): 62011030 Code(s): R94.31 - ABNORMAL ELECTROCARDIOGRAM [ECG] [EKG] Status: Acute - Problem List Review Problem List Initiated/Reviewed/Updated: Yes - My Orders Last 24 Hours: My Active Orders 12/22/20 Breakfast Nothing per Oral Now Diet [DIET] 12/22/20 13:42 Cardiac Monitoring [RC] . DIRECTED EKG Documentation Completion [RC] ASDIRECTED Oxygen Therapy, ED [RC] CONTINUOUS Peripheral IV Care [RC] . DIRECTED Pulse Oximetry [RC] CONTINUOUS Up With Assistance [RC] PFP Vital Signs [RC] PFP Chest 1V Frontal [CR] Stat Sodium Chloride 0.9% [Saline Flush] 10 ml FLUSH ASDIRECTED PRN Obtain Past Medical Record [OM.PC] Urgent Peripheral IV Insertion Adult [OM.PC] Stat Resuscitation Status Stat 12/22/20 13:43 Blood Culture x2 Reflex Set [OM.PC] Urgent 12/22/20 13:44 Blood Glucose Check, Bedside [RC] STAT 12/22/20 13:54 CULTURE BLOOD [BC] Stat 12/22/20 13:59 CULTURE BLOOD [BC] Stat 12/22/20 14:22 Isolation [COMM] Routine 12/22/20 15:11 Chest PE [Ang Chest] [CT] Stat - Assessment/Plan Admission H&P: Please use this note as an admission H&P Last 24 Hours: My Active Orders 12/22/20 Breakfast Nothing per Oral Now Diet [DIET] 12/22/20 13:42 Cardiac Monitoring [RC] . DIRECTED EKG Documentation Completion [RC] ASDIRECTED Oxygen Therapy, ED [RC] CONTINUOUS Peripheral IV Care [RC] . DIRECTED Pulse Oximetry [RC] CONTINUOUS Up With Assistance [RC] PFP Vital Signs [RC] PFP Chest 1V Frontal [CR] Stat Sodium Chloride 0.9% [Saline Flush] 10 ml FLUSH ASDIRECTED PRN Obtain Past Medical Record [OM.PC] Urgent Peripheral IV Insertion Adult [OM.PC] Stat Resuscitation Status Stat 12/22/20 13:43 Blood Culture x2 Reflex Set [OM.PC] Urgent 12/22/20 13:44 Blood Glucose Check, Bedside [RC] STAT 12/22/20 13:54 CULTURE BLOOD [BC] Stat 12/22/20 13:59 CULTURE BLOOD [BC] Stat 12/22/20 14:22 Isolation [COMM] Routine 12/22/20 15:11 Chest PE [Ang Chest] [CT] Stat Assessment:: As above Plan: As above. Extensive precautions were given to the patient and her , who are in agreement with the treatment plan. The patient's condition is stable enough for observation status and general supervision.
[2020-12-22] MEDS ORDERED: methylPREDNISolone Sodium Succinate 125 MG/2 ML SDV IVPUSH ONE (13:44)
[2020-12-22] MEDS ORDERED: Lactated Ringers 1,000 ML IV ONE ×2 (13:44→16:06)
[2020-12-22] MEDS: Sodium Chloride 0.9% 10 ML Syringe FLUSH PRN ×2 (13:50→14:20)
[2020-12-22 14:15] LABS: PTT,PARTIAL THROMBOPLSTIN TIME 23.1 SEC (24.5-32.8)
[2020-12-22] MEDS ORDERED: Metoclopramide 10 MG/2 ML SDV IVPUSH ONE (14:15)
[2020-12-22 14:28] LABS: CHLORIDE,CL 105 mmol/L (98-107); SODIUM,NA 140 mmol/L (136-145)
[2020-12-22] MEDS ORDERED: cefTRIAXone 2 GM Vial IVPUSH ONE (15:12)
[2020-12-22] MEDS ORDERED: Iopamidol 755 Mg/ML 100 ML Bottle IVPUSH ONE (15:30)
--- NOTE | 2020-12-22 16:06 | EDM.PDOC ---
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 15:50 WBC (4.0-10.2) K/uL RBC (3.77-5.09) M/uL Hgb (11.7-15.5) g/dL Hct (34.0-46.0) % MCV (84.0-98.0) fL MCH (28.2-33.3) pg MCHC (31.7-36.0) g/dL RDW (11.2-14.1) % Plt Count (150-350) K/uL Neut % (Auto) (45.0-80.0) % Lymph % (Auto) (10.0-50.0) % Ashley % (Auto) (2.0-14.0) % Eos % (Auto) (0.0-5.0) % Baso % (Auto) (0.0-2.0) % Neut # (Auto) (1.40-7.00) K/uL Lymph # (Auto) (0.50-3.50) K/uL Ashley # (Auto) (0.00-1.00) K/uL Eos # (Auto) (0.00-0.50) K/uL Baso # (Auto) (0.00-0.20) K/uL PT (9.5-12.0) SEC INR APTT (24.5-32.8) SEC D-Dimer, Quantitative (0-400) ng/mL Sodium (136-145) mmol/L Potassium (3.5-5.1) mmol/L Chloride (98-107) mmol/L Carbon Dioxide (21.0-32.0) mmol/L BUN (7-18) mg/dL Creatinine (0.51-1.17) mg/dL Est Cr Clr Drug Dosing Estimated GFR (MDRD) mL/min Glucose (70-99) mg/dL Lactic Acid (0.4-2.0) mmol/L Uric Acid (2.6-7.2) mg/dL Calcium (8.5-10.1) mg/dL Magnesium (1.8-2.4) mg/dL Total Bilirubin (0.2-1.0) mg/dL AST (15-37) U/L ALT (12-78) U/L Alkaline Phosphatase (46-116) IU/L Creatine Kinase (26-308) U/L Creatine Kinase Index (0.0-2.5) % CK-MB (CK-2) (0.00-3.60) ng/mL Troponin I (0.000-0.056) ng/mL NT-Pro-B Natriuret Pep (0-125) pg/mL Total Protein (6.4-8.2) g/dL Albumin (3.4-5.0) g/dL Amylase (25-115) U/L Lipase (73-393) U/L TSH, Ultra Sensitive (0.358-3.740) mIU/mL Specimen Type Urinvoid Urine Color Yellow Urine Appearance Clear Urine pH 6.0 (5.0-9.0) Ur Specific [place] 1.020 (1.005-1.030) Urine Protein 30 H (NEGATIVE) mg/dL Urine Glucose (UA) Negative (NEGATIVE) mg/dL Urine Ketones Negative (NEGATIVE) mg/dL Urine Occult Blood Trace-intact H (NEGATIVE) Urine Nitrite Negative (NEGATIVE) Urine Bilirubin Negative (NEGATIVE) Urine Urobilinogen 0.2 (0.2-1.0) E.U./dL Ur Leukocyte Esterase Negative (NEGATIVE) U Hyaline Cast (Auto) Occasional Urine RBC 0-5 /HPF Urine WBC 5-10 H /HPF Ur Epithelial Cells Many H /LPF Urine Bacteria Moderate H (NONE TO FEW) /HPF Granular Casts (Auto) Moderate Urine Mucus Few H (NEGATIVE) /LPF SARS-CoV-2 RNA (RICARDA) Negative (NEGATIVE) Meds: Medications Generic Name Dose Route Start Last Admin Trade Name Freq PRN Reason Stop Dose Admin Sodium Chloride 10 ml 12/22/20 13:42 12/22/20 14:20 Sodium Chloride 0.9% 10 Ml Syringe FLUSH 10 ml ASDIRECTED PRN Administration Keep Vein Open Discontinued Medications Generic Name Dose Route Start Last Admin Trade Name Gerardoq PRN Reason Stop Dose Admin Ceftriaxone Sodium 2 gm 12/22/20 15:12 12/22/20 15:59 Ceftriaxone 2 Gm Vial IVPUSH 12/22/20 15:13 2 gm ONETIME ONE Administration Lactated Ringer's 1,000 mls @ 999 mls/hr 12/22/20 13:44 12/22/20 13:48 Ringers, Lactated IV 12/22/20 14:44 999 mls/hr .BOLUS ONE Administration Lactated Ringer's 1,000 mls @ 999 mls/hr 12/22/20 16:06 12/22/20 16:08 Ringers, Lactated IV 12/22/20 17:06 999 mls/hr .BOLUS ONE Administration Iopamidol 100 ml 12/22/20 13:00 12/22/20 15:40 Iopamidol 755 Mg/Ml 100 Ml Bottle IVPUSH 12/22/20 13:01 100 ml ONETIME ONE Administration Iopamidol 100 ml 12/22/20 15:30 Iopamidol 755 Mg/Ml 100 Ml Bottle IVPUSH 12/22/20 15:31 ONETIME ONE Methylprednisolone Sodium Succinate 125 mg 12/22/20 13:44 12/22/20 13:50 Methylprednisolone Sodium Succinate 125 Mg/2 Ml Sdv IVPUSH 12/22/20 13:45 125 mg ONETIME ONE Administration Metoclopramide HCl 10 mg 12/22/20 14:15 12/22/20 14:20 Metoclopramide 10 Mg/2 Ml Sdv IVPUSH 12/22/20 14:16 10 mg ONETIME ONE Administration Potassium Chloride 40 meq 12/22/20 16:07 12/22/20 16:18 Potassium Chloride 20 Meq Tab.Er PO 12/22/20 16:08 Not Given ONETIME ONE Potassium Chloride 40 meq 12/22/20 16:15 12/22/20 16:18 Potassium Chloride 10 Meq Tab.Er PO 12/22/20 16:16 40 meq ONETIME ONE Administration Ticagrelor 180 mg 12/22/20 13:42 12/22/20 13:50 Ticagrelor 90 Mg Tab PO 12/22/20 13:43 180 mg ONETIME ONE Administration - Radiology Interpretation Free Text/Narrative:: surveillance system monitor showed initial mild sinus tachycardia in the 100s with improvement to the 70s to 80s shortly after initiation of treatment with no ectopy or extrasystoles Chest x-ray, portable, shows moderate COPD with no pulmonary infiltrates, pneumothorax, cardiomegaly, CHF, etc. Telephone consultation at 4:12 PM with the radiology department at [facility]. Preliminary verbal report of CTA of the chest using PE protocol was negative for PE. Note incidental findings of COPD and possible right upper lobe pulmonary infiltrates. Additional 9 mm left lower lobe pulmonary nodule. CT Results Date: 12/22/20 CT Results Time: 16:12 Departure - Departure Time of Disposition: 16:50 Disposition: Refer to Observation Clinical Impression: Hypokalemia, Mixed anxiety depressive disorder, Tobacco abuse counseling, Hypomagnesemia, Hypoalbuminemia, D-dimer, elevated, Shortened GA interval, Pulmonary nodule, Polycythemia Allergic reaction caused by a drug Qualifiers: Encounter type: initial encounter Qualified Code(s): T78.40XA - Allergy, unspecified, initial encounter Chest pain Qualifiers: Chest pain type: precordial pain Qualified Code(s): R07.2 - Precordial pain COPD (chronic obstructive pulmonary disease) Qualifiers: COPD type: COPD with acute lower respiratory infection Qualified Code(s): J44.0 - Chronic obstructive pulmonary disease with (acute) lower respiratory infection - Discharge Information *PRESCRIPTION DRUG MONITORING PROGRAM REVIEWED*: Not Applicable *COPY OF PRESCRIPTION DRUG MONITORING REPORT IN PATIENT AJIT: Not Applicable Sepsis Event Note (ED) - Evaluation Sepsis Screening Result: No Definite Risk - Focused Exam Vital Signs: Vital Signs Temp Pulse Resp BP Pulse Ox 12/22/20 16:26 75 16 86/58 L 97 12/22/20 16:05 88 16 92/58 L 96 12/22/20 15:45 86 16 98/59 L 96 12/22/20 15:11 88 16 98/59 L 95 12/22/20 14:56 88 16 101/72 97 12/22/20 14:28 95 16 91/56 L 95 12/22/20 14:00 79 16 95/59 L 94 L 12/22/20 13:36 36.6 C 103 H 14 80/58 L 90 L - Problem List & Annotations (1) Chest pain SNOMED Code(s): 78801118 Code(s): R07.9 - CHEST PAIN, UNSPECIFIED Status: Acute Priority: High Current Visit: Yes Onset Date: 12/22/20 Annotation/Comment:: Chest pain protocol initiated by the film projector operator prior to arrival with 4 baby aspirin chew and swallow given by the film projector operator. Chest pain protocol was continued in our facility, including Brilinta, etc. as above. Note nonspecific ST changes likely secondary to her hypokalemia with similar symptoms in the past with her hypoglycemia. Initiate standard rule out [place] orders. Cardiology consultation depending on her clinical course. Qualifiers: Chest pain type: precordial pain Qualified Code(s): R07.2 - Precordial pain (2) D-dimer, elevated SNOMED Code(s): 252178176 Code(s): R79.89 - OTHER SPECIFIED ABNORMAL FINDINGS OF BLOOD CHEMISTRY Status: Acute Priority: High Current Visit: Yes Onset Date: 12/22/20 Annotation/Comment:: Note CTA of the chest results as above. Consider venous Doppler studies of the lower extremities, which are not available in this facility until 12/26/2020. (3) Allergic reaction caused by a drug SNOMED Code(s): 146077786 Code(s): T78.40XA - ALLERGY, UNSPECIFIED, INITIAL ENCOUNTER Status: Acute Priority: High Current Visit: Yes Onset Date: 12/22/20 Annotation/Comment:: Secondary to progressive rash and her above symptoms patient was given 1 dose of IV Solu-Medrol IV with continuation of this therapy during this hospitalization. Note previous overall good results with treatment initially in the emergency room earlier this morning after as per that emergency room note. Patient has intolerance to prednisone including some psychosis, etc. with IV Solu-Medrol held at this time. Sedation, etc. precautions were given. Note that this is a repeat allergic reaction with the second loading dose with similar but less severe reaction with her initial dose of Cimzia. She will discuss this further with her GI specialist with records released from previous emergency room to that office earlier today. Qualifiers: Encounter type: initial encounter Qualified Code(s): T78.40XA - Allergy, unspecified, initial encounter (4) Hypokalemia SNOMED Code(s): 71598778 Code(s): E87.6 - HYPOKALEMIA Status: Acute Priority: High Current Visit: Yes Onset Date: 12/22/20 Annotation/Comment:: Note chronic problem secondary to her Crohn's disease with likely exacerbation secondary to her recurrent episodes of emesis prior to arrival. 1 L IV bolus of lactated Ringer's given in the emergency room with subsequent IV and oral potassium chloride supplementation. Note nonspecific ST changes consistent with her mild hypokalemia. (5) Hypoalbuminemia SNOMED Code(s): 702828501 Code(s): E88.09 - [facility] DISORDERS OF PLASMA-PROTEIN METABOLISM, NEC Status: Acute Priority: Medium Current Visit: Yes Onset Date: 12/22/20 Annotation/Comment:: Observe for now (6) Hypomagnesemia SNOMED Code(s): 592431227 Code(s): E83.42 - HYPOMAGNESEMIA Status: Acute Priority: High Current Visit: Yes Onset Date: 12/22/20 Annotation/Comment:: Either IV or oral magnesium supplementation depending on her clinical course with no IV magnesium sulfate for now secondary to her borderline hypotension. (7) Migraine SNOMED Code(s): 56586269 Code(s): G43.909 - MIGRAINE, UNSP, NOT INTRACTABLE, WITHOUT STATUS MIGRAINOSUS Status: Chronic Priority: Medium Current Visit: Yes Annotation/Comment:: Stable by history (8) Crohn's disease SNOMED Code(s): 23112529 Code(s): K50.90 - CROHN'S DISEASE, UNSPECIFIED, WITHOUT COMPLICATIONS Status: Chronic Priority: Medium Current Visit: Yes Annotation/Comment:: Moderate control based on patient's history with current immunotherapy as above. Qualifiers: Gastrointestinal tract location: small and large intestine Digestive disease complication type: without complication Qualified Code(s): K50.80 - Crohn's disease of both small and large intestine without complications (9) Shortened GA interval SNOMED Code(s): 48942616 Code(s): R94.31 - ABNORMAL ELECTROCARDIOGRAM [ECG] [EKG] Status: Chronic Priority: Medium Current Visit: Yes Onset Date: 06/19/18 (10) COPD (chronic obstructive pulmonary disease) SNOMED Code(s): 54753278 Code(s): J44.9 - CHRONIC OBSTRUCTIVE PULMONARY DISEASE, UNSPECIFIED Status: Acute Priority: High Current Visit: Yes Onset Date: 12/22/20 Annotati on/Comment:: Significant COPD by chest x-ray and CT scan with incidental possible right upper lobe pneumonia. Blood cultures x2 have been collected. Lactic acid level is normal. High-dose IV Rocephin initiated in the emergency room with continuation of IV antibiotics and additional oral doxycycline. PFTs should be repeated by her regular provider when she is back at her normal base line. Note significant leukocytosis likely secondary to stress reaction. Discharge with oral antibiotics with close follow-up by regular provider. Consider change to inpatient/acute care depending on her clinical course. Qualifiers: COPD type: COPD with acute lower respiratory infection Qualified Code(s): J44.0 - Chronic obstructive pulmonary disease with (acute) lower respiratory infection (11) Pulmonary nodule SNOMED Code(s): 611246152 Code(s): R91.1 - SOLITARY PULMONARY NODULE Status: Acute Priority: High Current Visit: Yes Onset Date: 12/22/20 Annotation/Comment:: Incidental finding. Tobacco cessation strongly encouraged as above. CT scan of the chest should be repeated in about 3 months by her regular provider. (12) Polycythemia SNOMED Code(s): 217973158 Code(s): D75.1 - SECONDARY POLYCYTHEMIA Status: Chronic Priority: Medium Current Visit: Yes Annotation/Comment:: Secondary to tobacco use as above. - Problem List Review Problem List Initiated/Reviewed/Updated: Yes - My Orders Last 24 Hours: My Active Orders 12/22/20 Breakfast Nothing per Oral Now Diet [DIET] 12/22/20 13:42 Cardiac Monitoring [RC] . DIRECTED EKG Documentation Completion [RC] ASDIRECTED Oxygen Therapy, ED [RC] CONTINUOUS Peripheral IV Care [RC] . DIRECTED Pulse Oximetry [RC] CONTINUOUS Up With Assistance [RC] PFP Vital Signs [RC] PFP Chest 1V Frontal [CR] Stat Sodium Chloride 0.9% [Saline Flush] 10 ml FLUSH ASDIRECTED PRN Obtain Past Medical Record [OM.PC] Urgent Peripheral IV Insertion Adult [OM.PC] Stat Resuscitation Status Stat 12/22/20 13:43 Blood Culture x2 Reflex Set [OM.PC] Urgent 12/22/20 13:44 Blood Glucose Check, Bedside [RC] STAT 12/22/20 13:54 CULTURE BLOOD [BC] Stat 12/22/20 13:59 CULTURE BLOOD [BC] Stat 12/22/20 14:22 Isolation [COMM] Routine 12/22/20 15:11 Chest PE [Ang Chest] [CT] Stat 12/22/20 15:50 CULTURE URINE [RM] Stat - Assessment/Plan Admission H&P: Please use this note as an admission H&P Last 24 Hours: My Active Orders 12/22/20 Breakfast Nothing per Oral Now Diet [DIET] 12/22/20 13:42 Cardiac Monitoring [RC] . DIRECTED EKG Documentation Completion [RC] ASDIRECTED Oxygen Therapy, ED [RC] CONTINUOUS Peripheral IV Care [RC] . DIRECTED Pulse Oximetry [RC] CONTINUOUS Up With Assistance [RC] PFP Vital Signs [RC] PFP Chest 1V Frontal [CR] Stat Sodium Chloride 0.9% [Saline Flush] 10 ml FLUSH ASDIRECTED PRN Obtain Past Medical Record [OM.PC] Urgent Peripheral IV Insertion Adult [OM.PC] Stat Resuscitation Status Stat 12/22/20 13:43 Blood Culture x2 Reflex Set [OM.PC] Urgent 12/22/20 13:44 Blood Glucose Check, Bedside [RC] STAT 12/22/20 13:54 CULTURE BLOOD [BC] Stat 12/22/20 13:59 CULTURE BLOOD [BC] Stat 12/22/20 14:22 Isolation [COMM] Routine 12/22/20 15:11 Chest PE [Ang Chest] [CT] Stat 12/22/20 15:50 CULTURE URINE [RM] Stat Assessment:: As above. Plan: As above. Extensive precautions were given to the patient and her , who are in agreement with the treatment plan. The patient's condition is stable enough for observation status and general supervision. Sindhu shin provider assumes care in the a.m.
[2020-12-22] MEDS: Potassium Chloride 20 MEQ Tab.ER PO ONE ×2 (16:12→16:18)
[2020-12-22] MEDS ORDERED: Potassium Chloride 10 MEQ Tab.ER PO ONE (16:15)
[2020-12-22] MEDS ORDERED: Sodium Chloride 0.9% 10 ML Syringe FLUSH PRN (17:19)
[2020-12-22] MEDS ORDERED: Temazepam 15 MG Cap PO PRN (17:19)
[2020-12-22] MEDS ORDERED: Acetaminophen 325 MG Tab PO PRN (17:19)
[2020-12-22] MEDS ORDERED: Potassium Chloride 20 MEQ Tab.ER PO SCH (18:30)
[2020-12-22] MEDS: Doxycycline Monohydrate 100 MG Cap PO SCH (18:55)
[2020-12-22] MEDS: diphenhydrAMINE 25 MG Cap PO PRN ×2 (18:56→23:11)
[2020-12-22] MEDS: Enoxaparin 60 MG/0.6 ML Syringe SUBCUT SCH (18:56)
[2020-12-22] MEDS: Potassium Chloride 10 MEQ Tab.ER PO SCH ×2 (18:56)
[2020-12-22] MEDS: Lactated Ringers 1,000 ML IV SCH (18:57)
[2020-12-22] MEDS ORDERED: Magnesium Oxide 400 MG Tab PO ONE (21:27)
[2020-12-23] MEDS ORDERED: cefTRIAXone 1 GM in Sodium Chloride 0.9% 100 ML IV SCH (03:00)
[2020-12-23] MEDS: Sodium Chloride 0.9% 10 ML Syringe FLUSH PRN (03:33)
[2020-12-23] MEDS: diphenhydrAMINE 25 MG Cap PO PRN (03:33)
[2020-12-23] MEDS: Lactated Ringers 1,000 ML IV SCH (05:31)
[2020-12-23] MEDS: Enoxaparin 60 MG/0.6 ML Syringe SUBCUT SCH (05:32)
[2020-12-23 07:27] LABS: HEMOGLOBIN A1C 4.7 % (4.3-5.7)
[2020-12-23] MEDS ORDERED: Famotidine 20 MG Tab PO SCH (08:00)
[2020-12-23] MEDS ORDERED: Omeprazole 20 MG Cap.CR PO SCH (08:00)
[2020-12-23] MEDS: Potassium Chloride 10 MEQ Tab.ER PO SCH (08:28)
[2020-12-23] MEDS: Doxycycline Monohydrate 100 MG Cap PO SCH (08:29)
[2020-12-23 08:52] LABS: CHLORIDE,CL 109 mmol/L (98-107); SODIUM,NA 140 mmol/L (136-145)
[2020-12-23] MEDS ORDERED: Magnesium Oxide 400 MG Tab PO SCH (20:00)
== END 2020-12-23 11:23 | disposition home or self-care (01) ==
LOC: LL.ED 13:34 → LL.MS 16:50
PROVIDERS: ADMIT Family Medicine; ATTEND Family Medicine
DX: R07.9 Chest pain, unspecified (principal); T47.0X5A Adverse effect of histamine H2-receptor blockers, initial encounter; R79.89 Other specified abnormal findings of blood chemistry; E87.6 Hypokalemia; E88.09 Other disorders of plasma-protein metabolism, not elsewhere classified; E83.42 Hypomagnesemia; G43.909 Migraine, unspecified, not intractable, without status migrainosus; K50.90 Crohn's disease, unspecified, without complications; R94.31 Abnormal electrocardiogram [ECG] [EKG]; J44.0 Chronic obstructive pulmonary disease with (acute) lower respiratory infection; D75.1 Secondary polycythemia; Z79.899 Other long term (current) drug therapy; Z20.828 Contact with and (suspected) exposure to other viral communicable diseases
CPT/HCPCS: 36415; 71045; 71275; 80053; 80061; 81001; 82150; 82550; 82553; 83036; 83605; 83690; 83735; 83880; 84443; 84484; 84550; 85025; 85379; 85610; 85730; 87040; 87086; 87635; 87804; 93005; 96365; 96372; 96375; 99285; A9270; G0378; J0696; J1650; J2765; J2930; J7120; Q9967; 96374; 99217; 99220; U0002

== ENCOUNTER 2021-03-30 16:39 | Observation (INO) | payer BC ==
[2021-03-30] MEDS ORDERED: Norflurane/HFc 245FA Medium Stream Spray 103.5 ML Can ONE (16:53)
[2021-03-30] MEDS ORDERED: Nicotine 21 MG/24 Hr Patch TRDERM PRN (18:32)
[2021-03-30] MEDS ORDERED: Sodium Chloride 0.9% 10 ML Syringe FLUSH PRN (18:32)
[2021-03-30] MEDS ORDERED: Spironolactone 25 MG Tab PO PRN (18:34)
[2021-03-30] MEDS ORDERED: ALPRAZolam 1 MG Tab PO PRN ×2 (18:34→19:12)
[2021-03-30] MEDS ORDERED: Metoclopramide 10 MG Tab PO PRN (18:34)
--- NOTE | 2021-03-30 18:41 | PCM.HP.2 ---
H&P History of Present Illness - General Date of Service: 03/30/21 Admit Problem/Dx: Admission Diagnosis/Problem Admission Diagnosis/Problem Electrolyte imbalance Source of Information: Patient - History of Present Illness Initial Comments - Free Text/Narative: Gracie is a 45 y/o male who was seen at the [facility] today by Dr Junie Cannon. She had apparently been noted to have a Potassium of 2.3 and a Magnesium of 1.7. These labs were done last week and no new labs were done today. She was seeing Dr Cannon to establish care with a PCP. She has not had a PCP and has been seeing [facility] in [place] for her Crohn's Disease. Patient reports that she has known she has had low potassium for over 2 years and really didn't think much of it until a visit with her GI dr who assumed she was having this managed by her PCP. She has a history of Crohns as stated above and has had some increased diarrhea this week. She denies feeling ill and had no symptoms, in fact she reports that she feels fine if she finds out that her Potassium is over 2. She was a bit resistant to come to the hospital for electrolyte replacement, but she agreed to come for Observation. - Related Data Allergies/Adverse Reactions: Allergies Allergy/AdvReac Type Severity Reaction Status Date / Time paroxetine HCl [From Paxil] Allergy Unknown paranoia Verified 03/30/21 17:22 aripiprazole [From Abilify] Allergy Irritabilit Verified 03/30/21 17:22 y bupropion [From Wellbutrin] Allergy Hallucinati Verified 03/30/21 17:22 ons certolizumab pegol Allergy Rash Verified 03/30/21 17:22 [From Cimzia] denosumab [From Prolia] Allergy Other Verified 03/30/21 17:22 latex Allergy hot Verified 03/30/21 17:22 "inflammed" rash prednisone Allergy paranoia Verified 03/30/21 17:22 Home Medications: Home Meds ALPRAZolam [Xanax] 1 mg PO ASDIRECTED PRN 12/22/20 [History] Cyanocobalamin (Vitamin B-12) [B-12 Compliance] 2 ml PO WEEKLY 12/22/20 [History] Cyclobenzaprine [Flexeril] 1 tab PO TID PRN 12/22/20 [History] FLUoxetine [PROzac] 60 mg PO DAILY 12/22/20 [History] Omeprazole 20 mg PO BEDTIME 12/22/20 [History] Potassium Chloride [Klor-Con 10] 60 meq PO TID 12/22/20 [History] Propranolol HCl [Inderal Xl] 120 mg PO DAILY 12/22/20 [History] Rizatriptan Benzoate [Rizatriptan] 1 tab PO DAILY PRN 12/22/20 [History] busPIRone [Buspar] 15 mg PO Q12HR 12/22/20 [History] hydrOXYzine HCL [Hydroxyzine HCl] 1 tab PO TID PRN 12/22/20 [History] Vedolizumab [Entyvio] 300 mg IV ASDIRECTED 03/08/21 [History] Calcium Carbonate/Vitamin D3 [Calcium 1,000 + D3 Caplet] 1 each PO DAILY 03/30/21 [History] Famotidine [Pepcid] 20 mg PO BEDTIME 03/30/21 [History] LORazepam [Ativan] 1 mg PO QID PRN 03/30/21 [History] Metoclopramide HCl 5 mg PO QID PRN 03/30/21 [History] Spironolactone [Aldactone] 25 mg PO DAILY PRN 03/30/21 [History] Past Medical History HEENT History: Reports: Allergic Rhinitis, Impaired Vision Other HEENT History: The patient was glasses with occasional soft contact lenses use. Cardiovascular History: Reports: Arrhythmia, High Cholesterol, Hypertension, Other (See Below) Other Cardiovascular History: Recurrent nonspecific chest discomfort and sinus tachycardia with episodes of hypokalemia. Left atrial enlargement by echocardiogram. History of hypertension for medical records, however chronic hypotension by patient history. Respiratory History: Reports: Intubation, Previous, Other (See Below) Other Respiratory History: Left rib fracture in about 2006. Gastrointestinal History: Reports: Cholelithiasis, Chronic Diarrhea, Fatty Liver, Fecal Incontinence, GERD, Inflammatory Bowel Disease Other Gastrointestinal History: Chronic diarrhea secondary to her Crohn's disease. Hepatomegaly with fatty liver. Genitourinary History: Reports: Retention, Urinary, Other (See Below) Other Genitourinary History: Urinary incontinence improved after bladder suspension as below. IMPROVEMENT SPECIALIST History: Reports: Dysfunctional Uterine Bleeding, Polycystic Ovaries, , Spontaneous Other OB/BYN History: Surgical menopause as below secondary to dysfunctional uterine bleeding. Bilateral benign ovarian cyst. Benign nabothian cyst. SAB x3 requiring D&C with 1 of these pregnancies. Initial full-term with subsequent at 36 weeks gestation and additional at 30 weeks gestation with labor starting at 25 weeks gestation. Musculoskeletal History: Reports: Arthritis, Back Pain, Chronic, Neck Pain, Chronic, Osteoarthritis, Osteoporosis Neurological History: Reports: Headaches, Chronic, Migraines Psychiatric History: Reports: Anxiety, Depression, Panic Attack, Psych Hospitalization(s), Psychosis, Suicide Attempt, Other (See Below) Other Psychiatric History: Suicidal thoughts and attempted Tylenol overdose at age 13. Endocrine/Metabolic History: Reports: Hyperthyroidism, Hypokalemia, Obesity/BMI 30+, Osteopenia, Osteoporosis, Other (See Below) Other Endocrine/Metabolic History: Borderline subclinical hyperthyroidism. Hypoalbuminemia. Hematologic History: Reports: Anemia, B12 Deficiency, Iron Deficiency, Other (See Below) Other Hematologic History: Occasional iron infusions required. Polycythemia secondary to her tobacco use. Immunologic History: Reports: Immunosuppression, Other (See Below) Other Immunologic History: Current immunotherapy for her Crohn's disease. Oncologic (Cancer) History: Reports: None Dermatologic History: Reports: None - Infectious Disease History Infectious Disease History: Reports: Chicken Pox - Past Surgical History Head Surgeries/Procedures: Reports: None HEENT Surgical History: Reports: Oral Surgery, Other (See Below) Other HEENT Surgeries/Procedures: Almost complete teeth extraction with complete upper dentures and partial lowers. Cardiovascular Surgical History: Reports: None Respiratory Surgical History: Reports: None GI Surgical History: Reports: Appendectomy, Cholecystectomy, Colon, Colonoscopy, EGD, Small Bowel, Other (See Below) Other GI Surgeries/Procedures: Last EGD and colonoscopy in about 2015. Previous colonoscopy on 07/17/2011. Initial right-sided hemicolectomy in about 1999 with subsequent partial small bowel resection of 10 cm at the ileum including appendectomy in 2010. Open cholecystectomy in 1992. Female Surgical History: Reports: D&C, Dilitation & Evacuation, Hysterectomy, Other (See Below) Other Female Surgeries/Procedures: D&C x1 secondary to SAB as above. Partial hysterectomy with concomitant bladder suspension in 2019. Endocrine Surgical History: Reports: None Neurological Surgical History: Reports: None Musculoskeletal Surgical History: Reports: None Oncologic Surgical History: Reports: None Dermatological Surgical History: Reports: None - Past Imaging History Past Imaging History: Reports: Cardiac Echo (08/17/2019 with ejection fraction of 60-65% with findings as above. Previous evaluation on 11/29/2014.), CAT Scan (Head 05/31/2014. Abdomen and pelvis on 09/22/2013.), DEXA Scan (01/26/2019, 02/06/2017, and 02/21/2015.), Mammogram (Last on 08/24/2020.), MRI (C-spine on 09/21/2013.), Ultrasound (Left breast 07/09/2018. Pelvic on 05/27/2017 and 11/08/2013. Abdominal on 07/26/2015. Previous OB ultrasounds.) Social & Family History - Family History HEENT: Reports: Macular Degeneration, Other (See Below) Other HEENT Family History: Maternal grandmother with macular degeneration. Cardiac: Reports: CAD, High Cholesterol, SC, Other (See Below) Other Cardiac Family History: Father with fatal SC at age 48. Maternal grandfather with fatal SC at age 52. Father with hyperlipidemia. Respiratory: Reports: COPD, Other (See Below) Other Respiratory Family Hisory: Paternal grandfather with COPD. GI: Reports: Pancreatitis, Other (See Below) Other GI Family History: Maternal grandmother with pancreatic cancer as below. : Reports: None OBGYN: Reports: None Musculoskeletal: Reports: None Neurological: Reports: None Psychiatric: Reports: Abuse, Victim of, Anxiety, Depression, Psychosis, Other (See Below) Other Psychiatric Family History: Father and brother with alcohol and drug abuse. Mother with anxiety depression disorder and psychosis. Endocrine/Metabolic: Reports: None Hematologic: Reports: None Immunologic: Reports: None Dermatologic: Reports: None Oncologic: Reports: Brain, Pancreatic, Other (See Below) Other Oncologic Family History: Maternal grandmother with fatal pancreatic cancer at age 80. Paternal grandmother with fatal brain cancer in her early 50s. 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 Exam - Exam Exam: See Below - Vital Signs Vital Signs: Last Vital Signs Temp 98.1 C H 03/30/21 16:44 Pulse 75 03/30/21 16:44 Resp BP 90/68 03/30/21 16:44 Pulse Ox 97 03/30/21 16:44 Weight: 63.684 kg - Exam General: Alert, Oriented, Cooperative (Adult female, neatly dressed.) HEENT: Hearing Intact, Mucosa Moist & Weingarten, Posterior Pharynx Clear, Pupils Equal, Pupils Reactive, TMs Clear Neck: Supple Lungs: Clear to Auscultation, Normal Respiratory Effort Cardiovascular: Regular Rate, Regular Rhythm GI/Abdominal Exam: Normal Bowel Sounds, Soft, Non-Tender (Female) Exam: Deferred Rectal (Female) Exam: Deferred Back Exam: Normal Inspection Extremities: Normal Inspection, Normal Range of Motion, Non-Tender, No Pedal Edema, Normal Capillary Refill Skin: Warm, Dry, Intact Neurological: Cranial Nerves Intact, Reflexes Equal Bilateral Neuro Extensive - Mental Status: Alert, Oriented x3, Normal Mood/Affect Neuro Extensive - Motor, Sensory, Reflexes: CN II-XII Intact, Normal Gait Psychiatric: Alert, Normal Affect Sepsis Event Note - Evaluation Sepsis Screening Result: No Definite Risk - Focused Exam Vital Signs: Vital Signs Temp Pulse BP Pulse Ox 03/30/21 16:44 98.1 C H 75 97 - Problem List (1) Hypokalemia SNOMED Code(s): 23915085 ICD Code: E87.6 - HYPOKALEMIA Status: Acute Current Visit: No Problem Details: Potassium=2.3, will plan 100mEq replacement. Will given 60mEq in IV riders and then a one time dose of 40mEq po. Repeat labs in the AM. Continue Telemetry. (2) Hypomagnesemia SNOMED Code(s): 742625254 ICD Code: E83.42 - HYPOMAGNESEMIA Status: Acute Priority: High Current Visit: No Onset Date: 12/22/20 Problem Details: Replace with MagSulfate 4gm over 4 hours. Repeat Mg level in the AM Continuous telemetry. (3) Crohn's disease SNOMED Code(s): 22383673 ICD Code: K50.90 - CROHN'S DISEASE, UNSPECIFIED, WITHOUT COMPLICATIONS Status: Chronic Priority: Medium Current Visit: No Problem Details: Will give Imodium 4mg po x 1 dose this week per recommendation of Dr Kamala Cannon. Continue all other immuntherapies. Qualifiers: Gastrointestinal tract location: small and large intestine Digestive disease complication type: without complication Qualified Code(s): K50.80 - Crohn's disease of both small and large intestine without complications Problem List Initiated/Reviewed/Updated: Yes Orders Last 24hrs: Active Orders 24 hr Category Date Time Status Patient Status [ADT] Routine ADT 03/30/21 18:28 Ordered Cardiac Monitoring [RC] CONTINUOUS Care 03/30/21 18:32 Ordered Oxygen Therapy [RC] PRN Care 03/30/21 18:28 Ordered Oxygen Therapy [RC] PRN Care 03/30/21 18:32 Ordered Up ad Alecia [RC] ASDIRECTED Care 03/30/21 18:32 Ordered VTE/DVT Education [RC] PER UNIT ROUTINE Care 03/30/21 18:28 Ordered VTE/DVT Education [RC] PER UNIT ROUTINE Care 03/30/21 18:32 Ordered Vital Signs [RC] Q4H Care 03/30/21 18:28 Ordered Vital Signs [RC] Q4H Care 03/30/21 18:32 Ordered Regular Diet [DIET] Diet 03/30/21 Dinner Ordered CBC WITH AUTO DIFF [HEME] Stat Lab 03/30/21 18:32 Ordered COMPREHENSIVE METABOLIC PN,CMP [CHEM] Stat Lab 03/30/21 18:32 Ordered MAGNESIUM [CHEM] Stat Lab 03/30/21 18:32 Ordered ALPRAZolam [Xanax] Med 03/30/21 18:34 Ordered 1 mg PO ASDIRECTED PRN FLUoxetine Med 03/31/21 08:00 Ordered 60 mg PO DAILY Famotidine [Pepcid] Med 03/30/21 20:00 Ordered 20 mg PO BEDTIME Metoclopramide HCl [Metoclopramide HCl] Med 03/30/21 18:34 Ordered 5 mg PO QID PRN Nicotine [Habitrol] Med 03/30/21 18:32 Ordered 21 mg TRDERM DAILY PRN Omeprazole [Omeprazole] Med 03/30/21 20:00 Ordered 20 mg PO BEDTIME Potassium Chloride [Klor-Con 10] Med 03/31/21 08:00 Ordered 60 meq PO TID Propranolol HCl [Inderal Xl] Med 03/31/21 08:00 Ordered 120 mg PO DAILY Sodium Chloride 0.9% [Saline Flush] Med 03/30/21 18:32 Ordered 10 ml FLUSH ASDIRECTED PRN Spironolactone [Aldactone] Med 03/30/21 18:34 Ordered 25 mg PO DAILY PRN Vedolizumab [Entyvio] Med 03/30/21 18:45 Ordered 300 mg IV ASDIRECTED busPIRone [Buspar] Med 03/30/21 20:00 Ordered 15 mg PO Q12HR Saline Lock Insert [OM.PC] Routine Oth 03/30/21 18:32 Ordered Resuscitation Status Routine Resus Stat 03/30/21 18:28 Ordered Medication Orders Nicotine (Nicotine 21 Mg/24 Hr Patch) 21 mg TRDERM DAILY PRN PRN Reason: Agitation Sodium Chloride (Sodium Chloride 0.9% 10 Ml Syringe) 10 ml FLUSH ASDIRECTED PRN PRN Reason: Keep Vein Open Assessment/Plan Comment:: -Repeat labs in the AM and plan to discharge to home in the AM if labs WNL and no other complications. - Mortality Measure Prognosis:: Good
[2021-03-30] MEDS ORDERED: Magnesium Sulfate/Water 4 GM in Premix Bag 1 BAG IV ONE (18:46)
[2021-03-30] MEDS ORDERED: Potassium Chloride 10 MEQ Tab.ER PO ONE ×2 (18:48→20:00)
[2021-03-30] MEDS ORDERED: Potassium Chloride 20 MEQ Tab.ER PO ONE (18:48)
[2021-03-30] MEDS ORDERED: Loperamide 2 MG Tab PO ONE (18:54)
[2021-03-30] MEDS: Potassium Chloride Riders 10 MEQ in Premix Bag 1 BAG IV SCH ×4 (19:39→23:11)
[2021-03-30] MEDS ORDERED: Famotidine 20 MG Tab PO SCH (20:00)
[2021-03-30] MEDS ORDERED: Omeprazole 20 MG Cap.CR PO SCH (20:00)
[2021-03-30] MEDS ORDERED: Sodium Chloride 0.9% 1,000 ML IV SCH (20:00)
[2021-03-30] MEDS ORDERED: busPIRone 15 MG Tab PO SCH (20:00)
[2021-03-30] MEDS ORDERED: Loperamide 2 MG Tab ONE (20:05)
[2021-03-31] MEDS: Potassium Chloride Riders 10 MEQ in Premix Bag 1 BAG IV SCH ×2 (00:14→01:19)
[2021-03-31] MEDS ORDERED: Propranolol 60 MG Cap.ER PO SCH (08:00)
[2021-03-31] MEDS ORDERED: Potassium Chloride 10 MEQ Tab.ER PO SCH (08:00)
[2021-03-31] MEDS ORDERED: FLUoxetine 20 MG Cap PO SCH (08:00)
--- NOTE | 2021-03-31 08:26 | PCM.PN ---
- General Info Date of Service: 03/31/21 Admission Dx/Problem (Free Text): Admission Diagnosis/Problem Admission Diagnosis/Problem Electrolyte imbalance Subjective Update: Patient was admitted yesterday with hypokalemia and hypomagnesemia. Potassium and magnesium were replaced overnight. Patient left this morning AMA before being seen by myself. Labs were drawn but are pending at this time. - Patient Data Vitals - Most Recent: Last Vital Signs Temp 36.9 C 03/30/21 18:32 Pulse 74 03/30/21 18:32 Resp 17 03/30/21 18:32 BP 109/66 03/30/21 18:32 Pulse Ox 96 03/30/21 18:32 Weight - Most Recent: 63.684 kg I&O - Last 24 Hours: Intake & Output 03/30/21 03/31/21 03/31/21 22:59 06:59 14:59 Intake Total 1395 Balance 1395 Med Orders - Current: Current Medications Alprazolam (Alprazolam 1 Mg Tab) 1 mg PO Q6H PRN PRN Reason: Anxiety Last Admin: 03/30/21 19:42 Dose: 1 mg Documented by: Buspirone HCl (Buspirone 15 Mg Tab) 15 mg PO Q12HR COUNT INCLUDES THE [facility] Last Admin: 03/30/21 19:40 Dose: 15 mg Documented by: Famotidine (Famotidine 20 Mg Tab) 20 mg PO BEDTIME COUNT INCLUDES THE [facility] Last Admin: 03/30/21 19:41 Dose: 20 mg Documented by: Fluoxetine HCl (Fluoxetine 20 Mg Cap) 60 mg PO DAILY COUNT INCLUDES THE [facility] Sodium Chloride (Normal Saline) 1,000 mls @ 100 mls/hr IV ASDIRECTED COUNT INCLUDES THE [facility] Last Admin: 03/30/21 19:55 Dose: 150 mls/hr Documented by: Metoclopramide HCl (Metoclopramide 10 Mg Tab) 5 mg PO QID PRN PRN Reason: Nausea Nicotine (Nicotine 21 Mg/24 Hr Patch) 21 mg TRDERM DAILY PRN PRN Reason: Agitation Omeprazole (Omeprazole 20 Mg Cap.Cr) 20 mg PO BEDTIME COUNT INCLUDES THE [facility] Last Admin: 03/30/21 19:41 Dose: 20 mg Documented by: Potassium Chloride (Potassium Chloride 10 Meq Tab.Er) 60 meq PO TID COUNT INCLUDES THE [facility] Propranolol HCl (Propranolol 60 Mg Cap.Er) 120 mg PO DAILY COUNT INCLUDES THE [facility] Sodium Chloride (Sodium Chloride 0.9% 10 Ml Syringe) 10 ml FLUSH ASDIRECTED PRN PRN Reason: Keep Vein Open Spironolactone (Spironolactone 25 Mg Tab) 25 mg PO DAILY PRN PRN Reason: Edema Discontinued Medications Alprazolam (Alprazolam 1 Mg Tab) 1 mg PO ASDIRECTED PRN PRN Reason: Anxiety Magnesium Sulfate 4 gm/ Premix 100 mls @ 25 mls/hr IV ONETIME ONE Stop: 03/30/21 22:45 Last Admin: 03/31/21 02:49 Dose: 25 mls/hr Documented by: Potassium Chloride 10 meq/ (Premix) 50 mls @ 50 mls/hr IV Q1H ARLINE Stop: 03/31/21 00:44 Last Admin: 03/31/21 01:19 Dose: 50 mls/hr Documented by: Loperamide HCl (Loperamide 2 Mg Tab) 4 mg PO ONETIME ONE Stop: 03/30/21 18:55 Last Admin: 03/30/21 19:40 Dose: 4 mg Documented by: Loperamide HCl (Loperamide 2 Mg Tab) Confirm Administered Dose 2 mg .ROUTE .STK- MED ONE Stop: 03/30/21 20:06 Last Admin: 03/30/21 21:18 Dose: Not Given Documented by: Norflurane (Norflurane/Hfc 245fa Medium Stream [place] 103.5 Ml Can) Confirm Administered Dose 103.5 ml .ROUTE .STK-MED ONE Stop: 03/30/21 16:54 Potassium Chloride (Potassium Chloride 10 Meq Tab.Er) 4 meq PO ONETIME ONE Stop: 03/30/21 18:49 Last Admin: 03/30/21 19:13 Dose: Not Given Documented by: Potassium Chloride (Potassium Chloride 20 Meq Tab.Er) 40 meq PO ONETIME ONE Stop: 03/30/21 18:49 Last Admin: 03/30/21 20:09 Dose: Not Given Documented by: Potassium Chloride (Potassium Chloride 10 Meq Tab.Er) 40 meq PO ONETIME ONE Stop: 03/30/21 20:01 Last Admin: 03/30/21 19:53 Dose: 40 meq Documented by: Vedolizumab (Vedolizumab 300 Mg Vial) 300 mg IV ASDIRECTED COUNT INCLUDES THE [facility] Sepsis Event Note - Evaluation Sepsis Screening Result: No Definite Risk - Problem List & Annotations (1) Hypokalemia SNOMED Code(s): 98751245 Code(s): E87.6 - HYPOKALEMIA Status: Acute Current Visit: No Annotation/Comment:: Potassium=2.3, will plan 100mEq replacement. Will given 60mEq in IV riders and then a one time dose of 40mEq po. Repeat labs in the AM. Continue Telemetry. (2) Hypomagnesemia SNOMED Code(s): 068310528 Code(s): E83.42 - HYPOMAGNESEMIA Status: Acute Priority: High Current Visit: No Onset Date: 12/22/20 Annotation/Comment:: Replace with MagSulfate 4gm over 4 hours. Repeat Mg level in the AM Continuous telemetry. - Problem List Review Problem List Initiated/Reviewed/Updated: Yes - Plan Plan:: Patient left AMA prior to being seen this morning..
[2021-03-31 08:52] LABS: CHLORIDE,CL 107 mmol/L (98-107); SODIUM,NA 142 mmol/L (136-145)
[2021-03-31 08:59] LABS: ANION GAP 11.2 meq/L (7-15)
== END 2021-03-31 07:10 | disposition left against medical advice (07) ==
LOC: INTOOBSV 16:39 → LL.MS 16:39
PROVIDERS: ADMIT Nurse Practitioner Family; ATTEND Nurse Practitioner Family
DX: E87.6 Hypokalemia (principal); E83.42 Hypomagnesemia; E87.8 Other disorders of electrolyte and fluid balance, not elsewhere classified; I10 Essential (primary) hypertension; E78.00 Pure hypercholesterolemia, unspecified; G43.909 Migraine, unspecified, not intractable, without status migrainosus; E66.9 Obesity, unspecified; E05.90 Thyrotoxicosis, unspecified without thyrotoxic crisis or storm; M81.0 Age-related osteoporosis without current pathological fracture; K50.80 Crohn's disease of both small and large intestine without complications; Z88.8 Allergy status to other drugs, medicaments and biological substances; Z91.040 Latex allergy status; Z79.899 Other long term (current) drug therapy; Z90.49 Acquired absence of other specified parts of digestive tract; Z98.890 Other specified postprocedural states
CPT/HCPCS: 36415; 80048; 83735; 96365; 96366; 96367; A9270-GY; G0378; J3475; J3480; J7030

== ENCOUNTER 2021-11-18 17:54 | Emergency (ER) | payer BC | END 2021-11-18 18:30 | disposition home or self-care (01) | LOC: LL.ED 17:54 | DX: H69.81 Other specified disorders of Eustachian tube, right ear (principal); K04.7 Periapical abscess without sinus; E78.00 Pure hypercholesterolemia, unspecified; I10 Essential (primary) hypertension; E05.90 Thyrotoxicosis, unspecified without thyrotoxic crisis or storm; E66.9 Obesity, unspecified; Z68.30 Body mass index [BMI] 30.0-30.9, adult; Z88.8 Allergy status to other drugs, medicaments and biological substances; Z91.040 Latex allergy status; Z79.899 Other long term (current) drug therapy | CPT/HCPCS: 99282; 99283 ==

== ENCOUNTER 2022-07-02 17:15 | Emergency (ER) | payer BC ==
[2022-07-02 18:08] LABS: CORONAVIRUS COVID-19 NAA NEGATIVE (NEGATIVE); RESPIRATORY SYNCYTIAL VIR NAA NEGATIVE (NEGATIVE)
[2022-07-02] MEDS ORDERED: Benzonatate 100 MG Cap PO ONE (18:19)
== END 2022-07-02 19:45 | disposition home or self-care (01) ==
LOC: LL.ED 17:15
DX: B34.9 Viral infection, unspecified (principal); I10 Essential (primary) hypertension; F17.210 Nicotine dependence, cigarettes, uncomplicated; Z88.8 Allergy status to other drugs, medicaments and biological substances; Z88.1 Allergy status to other antibiotic agents; Z91.040 Latex allergy status; Z79.899 Other long term (current) drug therapy; Z90.49 Acquired absence of other specified parts of digestive tract; Z20.822 Contact with and (suspected) exposure to COVID-19
CPT/HCPCS: 0241U; 99284; A9270-GY

== ENCOUNTER 2023-03-17 19:19 | Observation (INO) | payer BC ==
[2023-03-17] MEDS ORDERED: Ondansetron 4 MG/2 ML SDV IVPUSH ONE (19:31)
[2023-03-17] MEDS ORDERED: Sodium Chloride 0.9% 1,000 ML IV ONE (19:32)
[2023-03-17 20:01] LABS: BASOPHILS ABSOLUTE AUTO 0.03 K/uL (0.00-0.20); BASOPHILS PERCENT AUTO 0.2 % (0.0-2.0); EOSINOPHILS ABSOLUTE AUTO 0.08 K/uL (0.00-0.50); EOSINOPHILS PERCENT AUTO 0.4 % (0.0-5.0); HEMATOCRIT 53.8 % (34.0-46.0); LYMPHOCYTES ABSOLUTE AUTO 3.51 K/uL (0.50-3.50); LYMPHOCYTES PERCENT AUTO 18.1 % (10.0-50.0); MEAN CORPUSCULAR HEMOGLOBIN 31.5 pg (28.2-33.3); MEAN CORPUSCULAR HGB CONC 36.2 g/dL (31.7-36.0); MEAN CORPUSCULAR VOLUME 86.8 fL (84.0-98.0); MONOCYTES ABSOLUTE AUTO 1.35 K/uL (0.00-1.00); NEUTROPHILS ABSOLUTE AUTO 14.38 K/uL (1.40-7.00); NEUTROPHILS PERCENT AUTO 74.3 % (45.0-80.0); PLATELET COUNT,PLT 371 K/uL (150-350); RED CELL DISTRIBUTION WIDTH 15.6 % (11.2-14.1); WHITE BLOOD CELL COUNT,WBC 19.4 K/uL (4.0-10.2)
[2023-03-17 20:06] LABS: HEMOGLOBIN 19.5 g/dL (11.7-15.5)
[2023-03-17 20:15] LABS: ALBUMIN 4.1 g/dL (3.4-5.0); CREATININE 1.15 mg/dL (0.51-1.17); EST CRCL DRUG DOSING (CG) 58.18 mL/min; PROTEIN TOTAL,TP 8.8 g/dL (6.4-8.2)
[2023-03-17 20:17] LABS: ANION GAP 16.1 meq/L (7-15); POTASSIUM,K 2.1 mmol/L (3.5-5.1)
[2023-03-17] MEDS ORDERED: Potassium Bicarbonate/Cit Ac 20 MEQ Effervescent Tab PO ONE (20:35)
[2023-03-17] MEDS ORDERED: Potassium Chloride 10 MEQ Tab.ER PO ONE ×4 (20:37→23:59)
[2023-03-17] MEDS ORDERED: Potassium Chloride Riders 10 MEQ in Premix Bag 1 BAG IV SCH (20:45)
[2023-03-17] MEDS ORDERED: Nortriptyline 25 MG Cap PO ONE (20:53)
[2023-03-17] MEDS ORDERED: Pantoprazole 40 MG in Sodium Chloride 0.9% 100 ML IV ONE (20:54)
[2023-03-17] MEDS ORDERED: ALPRAZolam 1 MG Tab PO ONE (21:23)
[2023-03-17] MEDS ORDERED: Ondansetron 4 MG/2 ML SDV IVPUSH PRN (21:28)
[2023-03-17] MEDS ORDERED: Pantoprazole 40 MG Vial IVPUSH ONE (21:38)
[2023-03-17] MEDS ORDERED: ALPRAZolam 0.25 MG Tab PO PRN (21:44)
[2023-03-17] MEDS ORDERED: Acetaminophen 325 MG Tab PO PRN (22:02)
[2023-03-17] MEDS ORDERED: Promethazine 25 MG/ML SDV IM PRN (22:02)
[2023-03-17] MEDS ORDERED: LORazepam 1 MG Tab PO PRN (22:05)
[2023-03-17] MEDS: NS + KCl 20mEq/L 1,000 ML IV SCH (22:25)
[2023-03-17] MEDS: Metoclopramide 10 MG/2 ML SDV IVPUSH SCH (22:45)
[2023-03-18] MEDS ORDERED: Potassium Chloride 10 MEQ Tab.ER PO ONE ×6 (01:30→09:00)
[2023-03-18] MEDS: NS + KCl 20mEq/L 1,000 ML IV SCH (03:24)
[2023-03-18 03:54] LABS: BILIRUBIN,URINE NEGATIVE (NEGATIVE); COLOR,URINE YELLOW; GLUCOSE,URINE NEGATIVE (NEGATIVE); KETONES,URINE TRACE mg/dL (NEGATIVE); LEUKOCYTE ESTERASE,URINE TRACE (NEGATIVE); NITRITE,URINE NEGATIVE (NEGATIVE); OCCULT BLOOD,URINE NEGATIVE (NEGATIVE); PROTEIN,URINE NEGATIVE (NEGATIVE); UROBILINOGEN,URINE 0.2 E.U./dL (0.2-1.0)
[2023-03-18 04:06] LABS: APPEARANCE,URINE TURBID
[2023-03-18 04:07] LABS: BACTERIA,URINE MANY /HPF (NONE TO FEW); RBC,URINE 0-5 /HPF; WBC,URINE 20-30 /HPF
[2023-03-18 04:47] LABS: ANION GAP 8.6 meq/L (7-15); CALCIUM 7.3 mg/dL (8.5-10.1); CARBON DIOXIDE,CO2 28.8 mmol/L (21.0-32.0); CREATININE 0.93 mg/dL (0.51-1.17); EST CRCL DRUG DOSING (CG) 71.94 mL/min; POTASSIUM,K 3.4 mmol/L (3.5-5.1)
[2023-03-18] MEDS ORDERED: Calcium Carbonate 500 MG Tab.Chew PO ONE ×2 (04:53→08:00)
[2023-03-18] MEDS: Metoclopramide 10 MG/2 ML SDV IVPUSH SCH (05:19)
[2023-03-18] MEDS ORDERED: Pantoprazole 40 MG in Sodium Chloride 0.9% 100 ML IV ONE (08:00)
[2023-03-18] MEDS ORDERED: busPIRone 15 MG Tab PO SCH (08:00)
[2023-03-18] MEDS ORDERED: Sodium Chloride 0.9% 10 ML Syringe FLUSH PRN (08:03)
[2023-03-18 08:35] LABS: BASOPHILS ABSOLUTE AUTO 0.02 K/uL (0.00-0.20); BASOPHILS PERCENT AUTO 0.2 % (0.0-2.0); HEMATOCRIT 42.2 % (34.0-46.0); HEMOGLOBIN 14.6 g/dL (11.7-15.5); LYMPHOCYTES ABSOLUTE AUTO 2.62 K/uL (0.50-3.50); LYMPHOCYTES PERCENT AUTO 27.2 % (10.0-50.0); MEAN CORPUSCULAR HEMOGLOBIN 31.7 pg (28.2-33.3); MEAN CORPUSCULAR HGB CONC 34.6 g/dL (31.7-36.0); MEAN CORPUSCULAR VOLUME 91.5 fL (84.0-98.0); MONOCYTES ABSOLUTE AUTO 0.75 K/uL (0.00-1.00); MONOCYTES PERCENT AUTO 7.8 % (2.0-14.0); NEUTROPHILS ABSOLUTE AUTO 6.14 K/uL (1.40-7.00); NEUTROPHILS PERCENT AUTO 63.8 % (45.0-80.0); PLATELET COUNT,PLT 246 K/uL (150-350); RED BLOOD CELL COUNT 4.61 M/uL (3.77-5.09); RED CELL DISTRIBUTION WIDTH 15.1 % (11.2-14.1); WHITE BLOOD CELL COUNT,WBC 9.6 K/uL (4.0-10.2)
[2023-03-18 08:41] LABS: ANION GAP 5.3 meq/L (7-15); CALCIUM 7.4 mg/dL (8.5-10.1); CARBON DIOXIDE,CO2 27.7 mmol/L (21.0-32.0); CREATININE 0.84 mg/dL (0.51-1.17); EST CRCL DRUG DOSING (CG) 79.65 mL/min; POTASSIUM,K 3.5 mmol/L (3.5-5.1)
[2023-03-18] MEDS ORDERED: Pantoprazole 40 MG Vial IVPUSH ONE (09:00)
== END 2023-03-18 10:24 | disposition home or self-care (01) ==
LOC: LL.ED 19:19 → LL.MS 20:35
PROVIDERS: ADMIT Emergency Medicine; ATTEND Emergency Medicine
DX: E87.6 Hypokalemia (principal); E86.0 Dehydration; R11.2 Nausea with vomiting, unspecified; E78.00 Pure hypercholesterolemia, unspecified; K50.90 Crohn's disease, unspecified, without complications; J44.9 Chronic obstructive pulmonary disease, unspecified; I10 Essential (primary) hypertension; K76.0 Fatty (change of) liver, not elsewhere classified; K21.9 Gastro-esophageal reflux disease without esophagitis; M19.90 Unspecified osteoarthritis, unspecified site; G43.909 Migraine, unspecified, not intractable, without status migrainosus; F41.0 Panic disorder [episodic paroxysmal anxiety]; F32.A Depression, unspecified; E05.90 Thyrotoxicosis, unspecified without thyrotoxic crisis or storm; E66.9 Obesity, unspecified; F17.210 Nicotine dependence, cigarettes, uncomplicated; Z88.8 Allergy status to other drugs, medicaments and biological substances; Z91.040 Latex allergy status; Z79.899 Other long term (current) drug therapy; Z79.84 Long term (current) use of oral hypoglycemic drugs
CPT/HCPCS: 36415; 80048; 80053; 81001; 81003; 83605; 83735; 85025; 87086; 87088; 87186; 99223; 99239; A9270-GY; C9113; J2405; J2765; J3480; J3490; J7030

== ENCOUNTER 2023-08-28 22:59 | Emergency (ER) | payer BC, OTHER ==
[2023-08-28] MEDS ORDERED: Sodium Chloride 0.9% 10 ML Syringe FLUSH PRN (23:34)
[2023-08-28] MEDS: Ketorolac 15 MG/ML SDV IVPUSH ONE (23:53)
[2023-08-28] MEDS: Ondansetron 4 MG/2 ML SDV IVPUSH ONE (23:53)
[2023-08-28] MEDS: diphenhydrAMINE 50 MG/ML SDV IVPUSH ONE (23:53)
[2023-08-28] MEDS: Sodium Chloride 0.9% 1,000 ML IV ONE (23:53)
[2023-08-28 23:59] LABS: BASOPHILS ABSOLUTE AUTO 0.02 K/uL (0.00-0.20); BASOPHILS PERCENT AUTO 0.1 % (0.0-2.0); EOSINOPHILS ABSOLUTE AUTO 0.04 K/uL (0.00-0.50); EOSINOPHILS PERCENT AUTO 0.3 % (0.0-5.0); HEMATOCRIT 50.7 % (34.0-46.0); HEMOGLOBIN 17.6 g/dL (11.7-15.5); LYMPHOCYTES ABSOLUTE AUTO 2.12 K/uL (0.50-3.50); LYMPHOCYTES PERCENT AUTO 15.4 % (10.0-50.0); MEAN CORPUSCULAR HEMOGLOBIN 32.1 pg (28.2-33.3); MEAN CORPUSCULAR HGB CONC 34.7 g/dL (31.7-36.0); MEAN CORPUSCULAR VOLUME 92.3 fL (84.0-98.0); MONOCYTES ABSOLUTE AUTO 0.61 K/uL (0.00-1.00); MONOCYTES PERCENT AUTO 4.4 % (2.0-14.0); NEUTROPHILS ABSOLUTE AUTO 10.99 K/uL (1.40-7.00); NEUTROPHILS PERCENT AUTO 79.8 % (45.0-80.0); PLATELET COUNT,PLT 311 K/uL (150-350); RED BLOOD CELL COUNT 5.49 M/uL (3.77-5.09); WHITE BLOOD CELL COUNT,WBC 13.8 K/uL (4.0-10.2)
[2023-08-29 00:09] LABS: ANION GAP 16.2 meq/L (7-15); BLOOD UREA NITROGEN,BUN 11 mg/dL (7-18); CALCIUM 9.2 mg/dL (8.5-10.1); CARBON DIOXIDE,CO2 20.3 mmol/L (21.0-32.0); CHLORIDE,CL 102 mmol/L (98-107); CREATININE 0.82 mg/dL (0.51-1.17); ESTIMATED GFR 88 mL/min (>=60); GLUCOSE RANDOM 120 mg/dL (70-99); MAGNESIUM 1.5 mg/dL (1.8-2.4); POTASSIUM,K 3.5 mmol/L (3.5-5.1); SODIUM,NA 135 mmol/L (136-145)
[2023-08-29] MEDS: Magnesium Sulfate/Water 2 GM in Premix Bag 1 BAG IV ONE (00:54)
== END 2023-08-29 02:15 | disposition home or self-care (01) ==
LOC: LL.ED 22:59
DX: G43.909 Migraine, unspecified, not intractable, without status migrainosus (principal); E83.42 Hypomagnesemia; F17.210 Nicotine dependence, cigarettes, uncomplicated; I10 Essential (primary) hypertension; E66.9 Obesity, unspecified; K21.9 Gastro-esophageal reflux disease without esophagitis; Z79.84 Long term (current) use of oral hypoglycemic drugs; Z79.899 Other long term (current) drug therapy; Z88.8 Allergy status to other drugs, medicaments and biological substances; Z91.040 Latex allergy status
CPT/HCPCS: 36415; 80048; 83735; 85025; 96361; 96365; 96375; 99284; 99284-25; J1200; J1885; J2405; J3475; J7030

== ENCOUNTER 2023-09-11 19:59 | Inpatient (IN) | payer OTHER ==
[2023-09-11] MEDS: Albuterol/Ipratropium 3.0-0.5 MG/3 ML Neb Soln NEB ONE ×2 (20:16→21:04)
[2023-09-11 20:33] LABS: BASOPHILS ABSOLUTE AUTO 0.02 K/uL (0.00-0.20); BASOPHILS PERCENT AUTO 0.2 % (0.0-2.0); EOSINOPHILS ABSOLUTE AUTO 0.01 K/uL (0.00-0.50); EOSINOPHILS PERCENT AUTO 0.1 % (0.0-5.0); HEMATOCRIT 38.3 % (34.0-46.0); HEMOGLOBIN 12.9 g/dL (11.7-15.5); LYMPHOCYTES ABSOLUTE AUTO 0.61 K/uL (0.50-3.50); LYMPHOCYTES PERCENT AUTO 5.4 % (10.0-50.0); MEAN CORPUSCULAR HEMOGLOBIN 32.3 pg (28.2-33.3); MEAN CORPUSCULAR HGB CONC 33.7 g/dL (31.7-36.0); MEAN CORPUSCULAR VOLUME 95.8 fL (84.0-98.0); MONOCYTES ABSOLUTE AUTO 0.81 K/uL (0.00-1.00); MONOCYTES PERCENT AUTO 7.2 % (2.0-14.0); NEUTROPHILS ABSOLUTE AUTO 9.82 K/uL (1.40-7.00); NEUTROPHILS PERCENT AUTO 87.1 % (45.0-80.0); PLATELET COUNT,PLT 225 K/uL (150-350); WHITE BLOOD CELL COUNT,WBC 11.3 K/uL (4.0-10.2)
[2023-09-11 20:56] LABS: ALANINE AMINOTRANSFERASE,ALT 29 U/L (12-78); ALBUMIN 2.8 g/dL (3.4-5.0); ALKALINE PHOSPHATASE 57 IU/L (46-116); ASPARTATE AMNIOTRANSFERASE,AST 38 U/L (15-37); BILIRUBIN TOTAL 0.5 mg/dL (0.2-1.0); BLOOD UREA NITROGEN,BUN 11 mg/dL (7-18); CALCIUM 7.8 mg/dL (8.5-10.1); CARBON DIOXIDE,CO2 24.8 mmol/L (21.0-32.0); CHLORIDE,CL 105 mmol/L (98-107); CREATININE 1.31 mg/dL (0.51-1.17); GLUCOSE RANDOM 105 mg/dL (70-99); POTASSIUM,K 3.1 mmol/L (3.5-5.1); PROTEIN TOTAL,TP 6.4 g/dL (6.4-8.2); SODIUM,NA 139 mmol/L (136-145)
[2023-09-11 20:58] LABS: ANION GAP 12.3 meq/L (7-15); ESTIMATED GFR 50 mL/min (>=60)
[2023-09-11] MEDS: Acetaminophen 325 MG Tab PO ONE (21:03)
[2023-09-11 21:06] LABS: CORONAVIRUS COVID-19 NAA NEGATIVE (NEGATIVE); INFLUENZA A NAA POSITIVE (NEGATIVE); INFLUENZA B NAA NEGATIVE (NEGATIVE); RESPIRATORY SYNCYTIAL VIR NAA NEGATIVE (NEGATIVE)
[2023-09-11] MEDS: Potassium Bicarbonate/Cit Ac 20 MEQ Effervescent Tab PO ONE (21:20)
[2023-09-11] MEDS ORDERED: Sodium Chloride 0.9% 10 ML Syringe FLUSH PRN (22:02)
[2023-09-11] MEDS ORDERED: Ondansetron 4 MG Tab.DIS PO PRN (22:18)
[2023-09-11] MEDS ORDERED: Ondansetron 4 MG/2 ML SDV IVPUSH PRN (22:18)
[2023-09-11] MEDS: Sodium Chloride 0.9% 1,000 ML IV ONE (22:20)
[2023-09-11] MEDS ORDERED: Spironolactone 25 MG Tab PO PRN (23:29)
[2023-09-11] MEDS ORDERED: RIZATRIPTAN BENZOATE 5 MG PO PRN (23:29)
[2023-09-11] MEDS ORDERED: Non-Formulary Medication 1 Each (Aluminum Chloride [Drysol] 60 ML Solution) TOP PRN (23:29)
[2023-09-11] MEDS ORDERED: Ibuprofen 600 MG Tab PO PRN (23:29)
[2023-09-11] MEDS ORDERED: ALPRAZolam 1 MG Tab PO PRN (23:29)
[2023-09-11] MEDS ORDERED: Potassium Chloride 10 MEQ Tab.ER PO SCH (23:30)
[2023-09-11] MEDS ORDERED: [UNRECOGNIZED DRUG - OTHER] PO SCH (23:30)
[2023-09-11] MEDS ORDERED: CYANOCOBALAMIN 1000 MCG PO SCH (23:30)
[2023-09-11] MEDS ORDERED: RISANKIZUMAB RZAA 150 MG/ML SQ SCH (23:30)
[2023-09-11] MEDS: Sodium Chloride 0.9% 1,000 ML IV SCH (23:34)
[2023-09-11] MEDS: Magnesium Sulfate/Water 4 GM in Premix Bag 1 BAG IV ONE (23:43)
[2023-09-12] MEDS: Albuterol/Ipratropium 3.0-0.5 MG/3 ML Neb Soln NEB PRN (00:13)
[2023-09-12] MEDS: metFORMIN 500 MG Tab PO SCH (00:35)
[2023-09-12] MEDS: Acetaminophen 325 MG Tab PO PRN (02:36)
[2023-09-12] MEDS: Nicotine 21 MG/24 Hr Patch TRDERM SCH (04:36)
[2023-09-12 07:27] LABS: BASOPHILS ABSOLUTE AUTO 0.02 K/uL (0.00-0.20); BASOPHILS PERCENT AUTO 0.2 % (0.0-2.0); HEMATOCRIT 36.8 % (34.0-46.0); LYMPHOCYTES ABSOLUTE AUTO 0.96 K/uL (0.50-3.50); LYMPHOCYTES PERCENT AUTO 11.7 % (10.0-50.0); MEAN CORPUSCULAR HEMOGLOBIN 31.5 pg (28.2-33.3); MEAN CORPUSCULAR HGB CONC 32.6 g/dL (31.7-36.0); MEAN CORPUSCULAR VOLUME 96.6 fL (84.0-98.0); MONOCYTES ABSOLUTE AUTO 0.61 K/uL (0.00-1.00); MONOCYTES PERCENT AUTO 7.5 % (2.0-14.0); NEUTROPHILS ABSOLUTE AUTO 6.59 K/uL (1.40-7.00); NEUTROPHILS PERCENT AUTO 80.6 % (45.0-80.0); PLATELET COUNT,PLT 196 K/uL (150-350); RED BLOOD CELL COUNT 3.81 M/uL (3.77-5.09); RED CELL DISTRIBUTION WIDTH 15.4 % (11.2-14.1); WHITE BLOOD CELL COUNT,WBC 8.2 K/uL (4.0-10.2)
[2023-09-12 07:46] LABS: ALBUMIN 2.6 g/dL (3.4-5.0); BILIRUBIN TOTAL 0.4 mg/dL (0.2-1.0); CALCIUM 7.3 mg/dL (8.5-10.1); CARBON DIOXIDE,CO2 22.7 mmol/L (21.0-32.0); CREATININE 1.22 mg/dL (0.51-1.17); EST CRCL DRUG DOSING (CG) 54.24 mL/min; MAGNESIUM 2.6 mg/dL (1.8-2.4); POTASSIUM,K 3.1 mmol/L (3.5-5.1); PROTEIN TOTAL,TP 5.9 g/dL (6.4-8.2)
[2023-09-12 07:49] LABS: ANION GAP 13.4 meq/L (7-15)
[2023-09-12] MEDS: Calcium Carbonate/Vitamin D3 625 MG-125 Unit Tab PO SCH (08:00)
[2023-09-12] MEDS: Potassium Chloride 10 MEQ Tab.ER PO SCH (08:00)
[2023-09-12] MEDS: Topiramate 25 MG Tab PO SCH (08:00)
[2023-09-12] MEDS ORDERED: Non-Formulary Medication 1 Each (Budesonide [Budesonide Ec] 3 MG Capdr...Er) PO SCH (08:00)
[2023-09-12] MEDS: Fenofibrate,Micronized 134 MG Cap PO SCH (08:00)
[2023-09-12] MEDS ORDERED: Non-Formulary Medication 1 Each (Lurasidone Hcl [Latuda] 60 MG Tablet) PO SCH (08:00)
[2023-09-12] MEDS ORDERED: Non-Formulary Medication 1 Each (Diclofenac Sodium [Voltaren] 75 MG Tab.Ec) PO SCH (08:00)
[2023-09-12] MEDS: busPIRone 15 MG Tab PO SCH (08:01)
[2023-09-12] MEDS: Pregabalin 100 MG Cap PO SCH (08:01)
[2023-09-12] MEDS: Omeprazole 20 MG Cap.CR PO SCH (09:03)
[2023-09-12] MEDS: Oseltamivir 75 MG Cap PO ONE (11:15)
[2023-09-12] MEDS ORDERED: Nortriptyline 25 MG Cap PO SCH (20:00)
[2023-09-12] MEDS ORDERED: Alendronate 70 MG Tab PO SCH (23:30)
== END 2023-09-12 11:45 | disposition home or self-care (01) | DRG 194 ==
LOC: LL.ED 19:59 → LL.MS 21:59
PROVIDERS: ADMIT Physician Assistant; ATTEND Physician Assistant
DX: J10.1 Influenza due to other identified influenza virus with other respiratory manifestations (principal); J44.0 Chronic obstructive pulmonary disease with (acute) lower respiratory infection; N17.9 Acute kidney failure, unspecified; E83.42 Hypomagnesemia; E83.51 Hypocalcemia; E87.6 Hypokalemia; R00.0 Tachycardia, unspecified; K21.9 Gastro-esophageal reflux disease without esophagitis; E66.9 Obesity, unspecified; F17.200 Nicotine dependence, unspecified, uncomplicated; Z88.8 Allergy status to other drugs, medicaments and biological substances; Z99.81 Dependence on supplemental oxygen; Z79.84 Long term (current) use of oral hypoglycemic drugs; Z90.49 Acquired absence of other specified parts of digestive tract; Z90.89 Acquired absence of other organs; Z11.52 Encounter for screening for COVID-19; Z91.040 Latex allergy status; Z90.710 Acquired absence of both cervix and uterus; Z79.899 Other long term (current) drug therapy
CPT/HCPCS: 0241U; 36415; 71045; 80053; 83735; 84484; 85025; 93005; 94640; 99285; A9270-GY; J3475; J7030; J7620-GY

== ENCOUNTER 2024-02-03 23:27 | Emergency (ER) | payer OTHER ==
[2024-02-03] MEDS: Ipratropium 0.02% 0.5 MG/2.5 ML Neb Soln NEB ONE (23:46)
[2024-02-03] MEDS: methylPREDNISolone Sodium Succinate 125 MG/2 ML SDV IVPUSH ONE (23:46)
[2024-02-03] MEDS: Sodium Chloride 0.9% 10 ML Syringe FLUSH PRN (23:54)
[2024-02-03 23:56] LABS: BASOPHILS ABSOLUTE AUTO 0.01 K/uL (0.00-0.20); BASOPHILS PERCENT AUTO 0.2 % (0.0-2.0); EOSINOPHILS ABSOLUTE AUTO 0.02 K/uL (0.00-0.50); EOSINOPHILS PERCENT AUTO 0.4 % (0.0-5.0); HEMOGLOBIN 10.2 g/dL (11.7-15.5); LYMPHOCYTES ABSOLUTE AUTO 0.19 K/uL (0.50-3.50); LYMPHOCYTES PERCENT AUTO 4.1 % (10.0-50.0); MEAN CORPUSCULAR HEMOGLOBIN 31.6 pg (28.2-33.3); MEAN CORPUSCULAR VOLUME 92.9 fL (84.0-98.0); MONOCYTES ABSOLUTE AUTO 0.61 K/uL (0.00-1.00); MONOCYTES PERCENT AUTO 13.3 % (2.0-14.0); NEUTROPHILS ABSOLUTE AUTO 3.77 K/uL (1.40-7.00); PLATELET COUNT,PLT 486 K/uL (150-350); RED BLOOD CELL COUNT 3.23 M/uL (3.77-5.09); RED CELL DISTRIBUTION WIDTH 18.1 % (11.2-14.1); WHITE BLOOD CELL COUNT,WBC 4.6 K/uL (4.0-10.2)
[2024-02-04 00:18] LABS: ALANINE AMINOTRANSFERASE,ALT 29 U/L (12-78); ALKALINE PHOSPHATASE 99 IU/L (46-116); ASPARTATE AMNIOTRANSFERASE,AST 39 U/L (15-37); BILIRUBIN TOTAL 0.5 mg/dL (0.2-1.0); BLOOD UREA NITROGEN,BUN 56 mg/dL (7-18); CALCIUM 7.4 mg/dL (8.5-10.1); CARBON DIOXIDE,CO2 17.6 mmol/L (21.0-32.0); CHLORIDE,CL 92 mmol/L (98-107); ESTIMATED GFR 15 mL/min (>=60); GLUCOSE RANDOM 142 mg/dL (70-99); PRO B-TYPE NATRIUR PEPT,BNPPRO 1442 pg/mL (0-125); PROTEIN TOTAL,TP 6.4 g/dL (6.4-8.2); SODIUM,NA 128 mmol/L (136-145)
[2024-02-04 00:21] LABS: CREATININE 3.58 mg/dL (0.51-1.17); POTASSIUM,K 2.6 mmol/L (3.5-5.1)
[2024-02-04 00:32] LABS: INFLUENZA A NAA NEGATIVE (NEGATIVE); INFLUENZA B NAA NEGATIVE (NEGATIVE); RESPIRATORY SYNCYTIAL VIR NAA NEGATIVE (NEGATIVE)
[2024-02-04] MEDS: Potassium Bicarbonate/Cit Ac 20 MEQ Effervescent Tab PO ONE ×2 (00:33→01:27)
[2024-02-04] MEDS: Potassium Chloride Riders 10 MEQ in Premix Bag 1 BAG IV ONE (00:34)
[2024-02-04 00:35] LABS: CORONAVIRUS COVID-19 NAA POSITIVE (NEGATIVE)
[2024-02-04] MEDS: Sodium Chloride 0.9% 1,000 ML IV ONE ×3 (00:35→01:07)
[2024-02-04] MEDS: cefTRIAXone 2 GM Vial IVPUSH SCH (00:55)
[2024-02-04] MEDS: Azithromycin 500 MG in Sodium Chloride 0.9% 250 ML IV ONE (01:26)
[2024-02-04] MEDS: Acetaminophen 500 MG Tab PO ONE (01:43)
== END 2024-02-04 02:26 ==
LOC: LL.ED 23:27
DX: U07.1 COVID-19 (principal); J12.82 Pneumonia due to coronavirus disease 2019; A41.9 Sepsis, unspecified organism; N17.9 Acute kidney failure, unspecified; R65.20 Severe sepsis without septic shock; E87.6 Hypokalemia; I10 Essential (primary) hypertension; E78.00 Pure hypercholesterolemia, unspecified; I25.2 Old myocardial infarction; Z88.8 Allergy status to other drugs, medicaments and biological substances; Z88.5 Allergy status to narcotic agent; Z91.040 Latex allergy status; Z79.84 Long term (current) use of oral hypoglycemic drugs; Z79.899 Other long term (current) drug therapy; Z79.51 Long term (current) use of inhaled steroids; Z90.49 Acquired absence of other specified parts of digestive tract; Z90.710 Acquired absence of both cervix and uterus
CPT/HCPCS: 0241U; 36415; 71045; 80053; 83605; 83880; 84484; 85025; 87040; 93005; 93010; 96361; 96365; 96375; 99284; 99285-25; A9270-GY; J0456; J0696; J2919; J3490; J7030; J7050